=== PATIENT | male | born 1985 | race African-American/Black ===

== ENCOUNTER 2016-05-30 15:54 | Emergency (ER) | payer SELFPAY ==
--- NOTE | 2016-05-30 16:05 | ER Document Report ---
ED Medical Screen (RME) - General Stated Complaint: NAUSEA/VOMITING Time seen by provider: 16:29 Mode of Arrival: Medic Information source: Patient Notes: 31-year-old male presents to ED for Abdominal pain nausea vomiting and diarrhea for 48 hours called EMS today. EMS gave Zofran in the ED template was 97 7 but he is very sweaty for EMS. Generalized abdominal pain for 2 days. It is very diaphoretic crying. I have greeted and performed a rapid initial assessment of this patient. A comprehensive ED assessment and evaluation of the patient, analysis of test results and completion of medical decision making process will be conducted by an additional ED providers. TRAVEL OUTSIDE OF THE [place] IN LAST 30 DAYS: No - Related Data Allergies/Adverse Reactions: latex [Latex] Allergy (Verified 04/27/16 10:12) oxycodone HCl [From Percocet] Allergy (Verified 04/27/16 10:12) Past Medical History - Immunizations Immunizations up to date: Yes Hx Diphtheria, Pertussis, Tetanus Vaccination: Yes Physical Exam - Vital signs Vitals: Temp Pulse Resp BP 97.4 F 79 20 146/94 H 05/30/16 16:28 05/30/16 16:28 05/30/16 16:28 05/30/16 16:28 Course - Vital Signs Vital signs: Temp Pulse Resp BP Pulse Ox 97.4 F 79 20 146/94 H 05/30/16 16:28 05/30/16 16:28 05/30/16 16:28 05/30/16 16:28
[2016-05-30 16:29] VITALS: BP 146/94
[2016-05-30] MEDS ORDERED: HYDROCODONE/ACETAMINOPHEN 5-325 MG TABLET PO ONE (16:32)
[2016-05-30] MEDS ORDERED: ONDANSETRON 4 MG TAB.RAPDIS PO ONE (16:32)
[2016-05-30] MEDS ORDERED: IBUPROFEN 800 MG TABLET PO ONE (16:33)
[2016-05-30 17:20] LABS: ABSOLUTE LYMPHOCYTES (AUTO) 2.2 10^3/uL (0.5-4.7); ABSOLUTE MONOCYTES (AUTO) 1.2 10^3/uL (0.1-1.4); ABSOLUTE NEUT (AUTO) 12.4 10^3/uL (1.7-8.2); BASOPHILS % (AUTO) 0.2 % (0-2); HEMOGLOBIN 13.6 g/dL (13.5-17.0); HGB HCT DIFFERENCE -3.2; LYMPHOCYTES % (AUTO) 13.7 % (13-45); MEAN CORPUSCULAR VOLUME 84 fl (80-97); MONOCYTES % (AUTO) 7.5 % (3-13); RED BLOOD COUNT 5.25 10^6/uL (4.35-5.55); RED CELL DISTRIBUTION WIDTH 14.4 % (11.5-14.0); SEGMENTED NEUTROPHILS % (AUTO) 78.6 % (42-78); WHITE BLOOD COUNT 15.8 10^3/uL (4.0-10.5)
[2016-05-30 17:32] LABS: ALANINE AMINOTRANSFERASE 41 U/L (21-72); ALBUMIN 5.4 g/dL (3.5-5.0); ALKALINE PHOSPHATASE 58 U/L (38-126); ANION GAP 16 (5-19); ASPARTATE AMINO TRANSFERASE 33 U/L (17-59); BILIRUBIN,TOTAL 1.1 mg/dL (0.2-1.3); BLOOD UREA NITROGEN 13 mg/dL (7-20); CALCIUM 11.2 mg/dL (8.4-10.2); CARBON DIOXIDE 24 mmol/L (22-30); CHLORIDE 103 mmol/L (98-107); GLUCOSE 113 mg/dL (75-110); POTASSIUM 3.9 mmol/L (3.6-5.0); SODIUM 143.1 mmol/L (137-145); TOTAL PROTEIN 8.9 g/dL (6.3-8.2)
== END 2016-05-30 20:35 | disposition left against medical advice (07) ==
LOC: ER 15:54
DX: R11.2 Nausea with vomiting, unspecified (principal); R19.7 Diarrhea, unspecified; R10.84 Generalized abdominal pain; Z91.040 Latex allergy status; Z88.6 Allergy status to analgesic agent
CPT/HCPCS: 99281; 36415; 83690; 85025; 80053; S0119

== ENCOUNTER 2016-06-04 10:35 | Emergency (ER) | payer SELFPAY ==
--- NOTE | 2016-06-04 10:47 | ER Document Report ---
ED Medical Screen (RME) - General Stated Complaint: STOMACH PAIN Time seen by provider: 10:44 Mode of Arrival: Ambulatory Information source: Patient Notes: 31-year-old male complaining of intermittent periUmbilical abdominal pain since Monday. He waited in the emergency room after lab was drawn was not seen by provider because the wait was too long. The pain has not moved location. Diarrhea mucus but no blood. No abdominal surgeries. No genitalia pain TRAVEL OUTSIDE OF THE [place] IN LAST 30 DAYS: No - Related Data Allergies/Adverse Reactions: latex [Latex] Allergy (Verified 04/27/16 10:12) oxycodone HCl [From Percocet] Allergy (Verified 04/27/16 10:12) Past Medical History Renal/ Medical History: Denies: Hx Peritoneal Dialysis - Immunizations Immunizations up to date: Yes Hx Diphtheria, Pertussis, Tetanus Vaccination: Yes Physical Exam - Vital signs Vitals: Temp Pulse Resp BP Pulse Ox 98.1 F 74 18 150/85 H 99 06/04/16 10:41 06/04/16 10:41 06/04/16 10:41 06/04/16 10:41 06/04/16 10:41 Course - Vital Signs Vital signs: Temp Pulse Resp BP Pulse Ox 98.1 F 74 18 150/85 H 99 06/04/16 10:41 06/04/16 10:41 06/04/16 10:41 06/04/16 10:41 06/04/16 10:41
[2016-06-04] MEDS ORDERED: ONDANSETRON 4 MG TAB.RAPDIS PO ONE (11:13)
--- NOTE | 2016-06-04 11:13 | ER Document Report ---
ED GI/ - General Chief Complaint: Abdominal Pain Stated Complaint: STOMACH PAIN Mode of Arrival: Ambulatory Information source: Patient Notes: Patient presents complaining of upper abdominal pain off and on over the past 5 days. Patient states he had vomiting 2 days ago but none since then. Patient does report mild nausea. Patient denies any fever or urinary symptoms. Patient states that pain is worse after eating. TRAVEL OUTSIDE OF THE [place] IN LAST 30 DAYS: No - HPI Patient complains to provider of: Abdominal pain Onset: Other - 5 days Timing/Duration: Waxing and waning Quality of pain: Achy Pain Level: 3 Location: Epigastric Sexual history: Active Associated symptoms: Vomiting - 2 days ago, none since. denies: Dysuria, Fever , Nausea, Urinary hesitancy, Urinary frequency, Urinary retention, Urinary urgency Exacerbated by: Food Relieved by: Denies Similar symptoms previously: No Recently seen / treated by doctor: No - Related Data Allergies/Adverse Reactions: latex [Latex] Allergy (Verified 06/04/16 10:46) oxycodone HCl [From Percocet] Allergy (Verified 06/04/16 10:46) Past Medical History - General Information source: Patient - Social History Smoking Status: Current Every Day Smoker Chew tobacco use (# tins/day): No Frequency of alcohol use: Social Drug Abuse: Marijuana Occupation: truck dock material mover Family History: Reviewed & Not Pertinent Patient has suicidal ideation: No Patient has homicidal ideation: No - Medical History Medical History: Negative Renal/ Medical History: Denies: Hx Peritoneal Dialysis Surgical Hx: Negative - Immunizations Immunizations up to date: Yes Hx Diphtheria, Pertussis, Tetanus Vaccination: Yes Review of Systems - Review of Systems Constitutional: No symptoms reported. denies: Fever, Recent illness EENT: No symptoms reported Cardiovascular: No symptoms reported. denies: Chest pain Respiratory: No symptoms reported. denies: Cough, Short of breath Gastrointestinal: Abdominal pain, Diarrhea - Yesterday, none today, Nausea, Vomiting - 2 days ago Genitourinary: No symptoms reported. denies: Dysuria, Flank pain Male Genitourinary: No symptoms reported Musculoskeletal: No symptoms reported. denies: Back pain Skin: No symptoms reported Hematologic/Lymphatic: No symptoms reported Neurological/Psychological: No symptoms reported Physical Exam - Vital signs Vitals: Temp Pulse Resp BP Pulse Ox 98.1 F 74 18 150/85 H 99 06/04/16 10:41 06/04/16 10:41 06/04/16 10:41 06/04/16 10:41 06/04/16 10:41 - General General appearance: Appears well, Alert In distress: None Notes: PHYSICAL EXAMINATION: GENERAL: Well-appearing and in no acute distress. HEAD: Atraumatic, normocephalic. EYES: sclera anicteric, conjunctiva are normal. ENT: nares patent. Moist mucous membranes. NECK: Normal range of motion, supple without lymphadenopathy LUNGS: CTAB and equal. No wheezes rales or rhonchi. HEART: Regular rate and rhythm without murmurs ABDOMEN: Soft, epigastric abdominal tenderness, normal bowel sounds, no guarding. EXTREMITIES: Normal range of motion, no pitting edema. No cyanosis. BACK: No midline tenderness, no step-off or deformity. No CVA tenderness NEUROLOGICAL: Cranial nerves grossly intact. Normal speech. Normal gait. PSYCH: Normal mood, normal affect. SKIN: Warm, Dry, normal turgor, no rashes or lesions noted Course - Re-evaluation Re-evalutation: 06/04/16 13:20 Patient reports that upper abdominal pain has completely resolved after GI cocktail. Abdomen soft, nontender. Consulted with Dr. Janett kemping patient presentation, agrees with plan for discharge. Patient presents with abdominal pain without signs of peritonitis or other life- threatening or serious etiology. Patient appears stable for discharge and has been instructed to return immediately if the symptoms worsen in any way, or in 8 -12 hours if not improved for reevaluation. The patient has been instructed to return if the symptoms worsen or change in any way. - Vital Signs Vital signs: Temp Pulse Resp BP Pulse Ox 97.8 F 74 18 147/98 H 97 06/04/16 13:34 06/04/16 13:34 06/04/16 13:34 06/04/16 13:34 06/04/16 13:34 - Laboratory Result Diagrams: 06/04/16 11:20 06/04/16 11:20 Laboratory results interpreted by me: 06/04/16 06/04/16 06/04/16 11:20 11:20 11:20 Hgb 12.7 L MCH 26.9 L MCHC 31.8 L Glucose 73 L Urine Blood SMALL H Urine Urobilinogen 2.0 H Labs- Entire Visit 06/04/16 06/04/16 06/04/16 11:20 11:20 11:20 WBC 5.8 RBC 4.73 Hgb 12.7 L Hct 40.0 MCV 85 MCH 26.9 L MCHC 31.8 L RDW 13.9 Plt Count 204 Seg Neutrophils % 68.8 Lymphocytes % 22.3 Monocytes % 8.2 Eosinophils % 0.2 Basophils % 0.5 Absolute Neutrophils 4.0 Absolute Lymphocytes 1.3 Absolute Monocytes 0.5 Absolute Eosinophils 0.0 Absolute Basophils 0.0 Sodium 142.3 Potassium 4.3 Chloride 102 Carbon Dioxide 30 Anion Gap 10 BUN 16 Creatinine 1.14 Est GFR ( Amer) > 60 Est GFR (Non-Af Amer) > 60 Glucose 73 L Calcium 9.9 Total Bilirubin 1.0 Direct Bilirubin 0.0 AST 46 ALT 52 Alkaline Phosphatase 39 Total Protein 7.1 Albumin 4.1 Lipase 36.0 Urine Color YELLOW Urine Appearance CLEAR Urine pH 6.0 Ur Specific Agency 1.012 Urine Protein NEGATIVE Urine Glucose (UA) NEGATIVE Urine Ketones NEGATIVE Urine Blood SMALL H Urine Nitrite NEGATIVE Urine Bilirubin NEGATIVE Urine Urobilinogen 2.0 H Ur Leukocyte Esterase NEGATIVE Urine WBC (Auto) 2 Urine RBC (Auto) 1 Urine Ascorbic Acid NEGATIVE Discharge - Discharge Clinical Impression: Epigastric pain, Elevated blood pressure reading Condition: Stable Disposition: HOME, SELF-CARE Instructions: Abdominal Pain ([facility]), High Blood Pressure ([facility]), Reflux Disease ( GERD) ([facility]) Additional Instructions: Return immediately for any new or worsening symptoms Followup with your primary care provider, call tomorrow to make a followup appointment Your blood pressure was elevated today, follow-up with primary doctor in 2 days to have this rechecked Prescriptions: Omeprazole Magnesium [Prilosec Otc] 20 mg PO DAILY #15 tablet. Sucralfate [Carafate 1 gm Tablet] 1 gm PO ACHS #40 tablet Forms: Return to Work Referrals: [facility] [Provider Group] - Follow up as needed [facility] [Provider Group] - Follow up as needed
[2016-06-04 11:41] LABS: ABSOLUTE LYMPHOCYTES (AUTO) 1.3 10^3/uL (0.5-4.7); ABSOLUTE MONOCYTES (AUTO) 0.5 10^3/uL (0.1-1.4); BASOPHILS % (AUTO) 0.5 % (0-2); EOSINOPHILS % (AUTO) 0.2 % (0-6); HEMOGLOBIN 12.7 g/dL (13.5-17.0); HGB HCT DIFFERENCE -1.9; LYMPHOCYTES % (AUTO) 22.3 % (13-45); MEAN CORPUSCULAR HEMOGLOBIN 26.9 pg (27.0-33.4); MEAN CORPUSCULAR HGB CONC 31.8 g/dL (32.0-36.0); MEAN CORPUSCULAR VOLUME 85 fl (80-97); MONOCYTES % (AUTO) 8.2 % (3-13); RED BLOOD COUNT 4.73 10^6/uL (4.35-5.55); RED CELL DISTRIBUTION WIDTH 13.9 % (11.5-14.0); SEGMENTED NEUTROPHILS % (AUTO) 68.8 % (42-78); WHITE BLOOD COUNT 5.8 10^3/uL (4.0-10.5)
[2016-06-04 11:43] LABS: APPEARANCE,URINE CLEAR; BILIRUBIN,URINE NEGATIVE (NEGATIVE); GLUCOSE, URINE NEGATIVE (NEGATIVE); KETONES,URINE NEGATIVE (NEGATIVE); LEUKOCYTE ESTERASE,URINE NEGATIVE (NEGATIVE); NITRITE,URINE NEGATIVE (NEGATIVE); PROTEIN,URINE NEGATIVE (NEGATIVE); URINE SPECIFIC GRAVITY 1.012
[2016-06-04] MEDS ORDERED: LIDOCAINE 2% VISCOUS SOLN 20 ML UDCUP PO ONE (11:57)
[2016-06-04] MEDS ORDERED: MAG HYDROX/AL HYDROX/SIMETH SUSP 30 ML UDCUP PO ONE (11:57)
[2016-06-04 12:00] LABS: ALANINE AMINOTRANSFERASE 52 U/L (21-72); ALBUMIN 4.1 g/dL (3.5-5.0); ALKALINE PHOSPHATASE 39 U/L (38-126); ANION GAP 10 (5-19); ASPARTATE AMINO TRANSFERASE 46 U/L (17-59); BLOOD UREA NITROGEN 16 mg/dL (7-20); CALCIUM 9.9 mg/dL (8.4-10.2); CARBON DIOXIDE 30 mmol/L (22-30); CHLORIDE 102 mmol/L (98-107); CREATININE RESULT 1.14 mg/dL (0.52-1.25); GLUCOSE 73 mg/dL (75-110); POTASSIUM 4.3 mmol/L (3.6-5.0); SODIUM 142.3 mmol/L (137-145); TOTAL PROTEIN 7.1 g/dL (6.3-8.2)
[2016-06-04 13:36] VITALS: BP 147/98
== END 2016-06-04 13:34 | disposition home or self-care (01) ==
LOC: ER 10:35
DX: R10.13 Epigastric pain (principal); R03.0 Elevated blood-pressure reading, without diagnosis of hypertension; R11.2 Nausea with vomiting, unspecified; R19.7 Diarrhea, unspecified; F17.200 Nicotine dependence, unspecified, uncomplicated; Z91.040 Latex allergy status; Z88.6 Allergy status to analgesic agent
CPT/HCPCS: 99284; 36415; 83690; 85025; 80053; 81001; S0119; J3490

== ENCOUNTER 2016-06-13 08:07 | Emergency (ER) | payer SELFPAY ==
[2016-06-13 08:24] VITALS: BP 146/84
== END 2016-06-13 09:10 | disposition left against medical advice (07) ==
LOC: ER 08:07
DX: Z53.9 Procedure and treatment not carried out, unspecified reason (principal); M54.9 Dorsalgia, unspecified

== ENCOUNTER 2016-11-16 08:11 | Emergency (ER) | payer SELFPAY ==
[2016-11-16] MEDS ORDERED: NORMAL SALINE 1000 ML 1,000 ML IV PRN (08:41)
[2016-11-16] MEDS ORDERED: ONDANSETRON HCL INJ/PF 4 MG/2 ML SDV IV ONE (08:42)
[2016-11-16 09:13] LABS: ABSOLUTE LYMPHOCYTES (AUTO) 1.5 10^3/uL (0.5-4.7); ABSOLUTE MONOCYTES (AUTO) 0.7 10^3/uL (0.1-1.4); BASOPHILS % (AUTO) 0.3 % (0-2); EOSINOPHILS % (AUTO) 0.4 % (0-6); HEMATOCRIT 43.1 % (37.9-51.0); HEMOGLOBIN 13.5 g/dL (13.5-17.0); HGB HCT DIFFERENCE -2.6; LYMPHOCYTES % (AUTO) 18.2 % (13-45); MEAN CORPUSCULAR HEMOGLOBIN 26.4 pg (27.0-33.4); MEAN CORPUSCULAR HGB CONC 31.4 g/dL (32.0-36.0); MEAN CORPUSCULAR VOLUME 84 fl (80-97); MONOCYTES % (AUTO) 8.4 % (3-13); RED BLOOD COUNT 5.14 10^6/uL (4.35-5.55); RED CELL DISTRIBUTION WIDTH 14.4 % (11.5-14.0); SEGMENTED NEUTROPHILS % (AUTO) 72.7 % (42-78); WHITE BLOOD COUNT 8.2 10^3/uL (4.0-10.5)
[2016-11-16 09:24] LABS: ALANINE AMINOTRANSFERASE 44 U/L (21-72); ALBUMIN 4.5 g/dL (3.5-5.0); ALKALINE PHOSPHATASE 48 U/L (38-126); ANION GAP 11 (5-19); ASPARTATE AMINO TRANSFERASE 43 U/L (17-59); BILIRUBIN,DIRECT 0.2 mg/dL (0.0-0.4); BILIRUBIN,TOTAL 1.1 mg/dL (0.2-1.3); BLOOD UREA NITROGEN 19 mg/dL (7-20); CALCIUM 9.6 mg/dL (8.4-10.2); CARBON DIOXIDE 27 mmol/L (22-30); CHLORIDE 100 mmol/L (98-107); CREATININE RESULT 0.95 mg/dL (0.52-1.25); GLUCOSE 91 mg/dL (75-110); LIPASE 41.7 U/L (23-300); POTASSIUM 4.6 mmol/L (3.6-5.0); SODIUM 137.8 mmol/L (137-145); TOTAL PROTEIN 7.9 g/dL (6.3-8.2)
--- NOTE | 2016-11-16 10:40 | ER Document Report ---
ED General - General Chief Complaint: Abdominal Pain Stated Complaint: VOMITING Time Seen by Provider: 11/16/16 08:32 TRAVEL OUTSIDE OF THE [place] IN LAST 30 DAYS: No - HPI Patient complains to provider of: Nausea vomiting diarrhea Notes: Patient coming in for nausea vomiting diarrhea after eating uncooked pork ribs 2 days prior to arrival states no more diarrhea still having nausea vomiting abdominal cramping. Patient denies any recent travel denies any other sick contacts denies anybody else getting sick from the needle. Denies any past medical history denies fevers chills patient is resting comfortably upon my evaluation - Related Data Allergies/Adverse Reactions: latex [Latex] Allergy (Verified 11/16/16 08:18) oxycodone HCl [From Percocet] Allergy (Verified 11/16/16 08:18) Past Medical History - Social History Smoking Status: Never Smoker Chew tobacco use (# tins/day): No Frequency of alcohol use: None Drug Abuse: Marijuana Family History: Reviewed & Not Pertinent Patient has suicidal ideation: No Patient has homicidal ideation: No Renal/ Medical History: Denies: Hx Peritoneal Dialysis Surgical Hx: Negative - Immunizations Immunizations up to date: Yes Hx Diphtheria, Pertussis, Tetanus Vaccination: Yes - 2014 Review of Systems - Review of Systems Constitutional: No symptoms reported EENT: No symptoms reported Cardiovascular: No symptoms reported Respiratory: No symptoms reported Gastrointestinal: Abdominal pain, Nausea, Vomiting Genitourinary: No symptoms reported Male Genitourinary: No symptoms reported Musculoskeletal: No symptoms reported Skin: No symptoms reported Hematologic/Lymphatic: No symptoms reported Neurological/Psychological: No symptoms reported -: Yes All other systems reviewed and negative Physical Exam - Vital signs Vitals: Temp Pulse Resp BP Pulse Ox 98.2 F 70 16 120/76 99 11/16/16 08:19 11/16/16 08:19 11/16/16 08:19 11/16/16 08:19 11/16/16 08:19 Interpretation: Normal - General General appearance: Appears well, Alert - HEENT Head: Normocephalic, Atraumatic Eyes: Normal Pupils: PERRL - Respiratory Respiratory status: No respiratory distress Chest status: Nontender Breath sounds: Normal Chest palpation: Normal - Cardiovascular Rhythm: Regular Heart sounds: Normal auscultation Murmur: No - Abdominal Inspection: Normal Distension: No distension Bowel sounds: Normal Tenderness: Nontender Organomegaly: No organomegaly - Back Back: Normal, Nontender - Extremities General upper extremity: Normal inspection, Nontender, Normal color, Normal ROM , Normal temperature General lower extremity: Normal inspection, Nontender, Normal color, Normal ROM , Normal temperature, Normal weight bearing. No: Ned's sign - Neurological Neuro grossly intact: Yes Cognition: Normal Orientation: AAOx4 Superior Coma Scale Eye Opening: Spontaneous [place] Coma Scale Verbal: Oriented [place] Coma Scale Motor: Obeys Commands [place] Coma Scale Total: 15 Speech: Normal Motor strength normal: LUE, RUE, LLE, RLE Sensory: Normal - Psychological Associated symptoms: Normal affect, Normal mood - Skin Skin Temperature: Warm Skin Moisture: Dry Skin Color: Normal Course - Vital Signs Vital signs: Temp Pulse Resp BP Pulse Ox 97.9 F 68 17 131/76 H 100 11/16/16 10:46 11/16/16 10:46 11/16/16 10:46 11/16/16 10:46 11/16/16 10:46 - Laboratory Result Diagrams: 11/16/16 09:02 11/16/16 09:02 Laboratory results interpreted by me: 11/16/16 09:02 MCH 26.4 L MCHC 31.4 L RDW 14.4 H Discharge - Discharge Clinical Impression: Nausea vomiting and diarrhea Condition: Good Disposition: HOME, SELF-CARE Instructions: Abdominal Pain ([facility]), Gastroenteritis (adult) ([facility]) Additional Instructions: Take medication as prescribed. Return to the ER symptoms worsen. Follow-up with your primary care physician. Stick to a clear liquid diet for the next 12- 24 hrs. Prescriptions: Ondansetron [Zofran Odt 4 mg Tablet] 1 - 2 tab PO Q4H PRN #15 tab.rapdis PRN Reason: For Nausea/Vomiting Forms: Return to Work
[2016-11-16 10:51] VITALS: BP 131/76
== END 2016-11-16 10:51 | disposition home or self-care (01) ==
LOC: ER 08:11
DX: R11.2 Nausea with vomiting, unspecified (principal); R19.7 Diarrhea, unspecified; R10.9 Unspecified abdominal pain; Z88.5 Allergy status to narcotic agent; Z91.040 Latex allergy status
CPT/HCPCS: 99284; 96374; 36415; 83690; 85025; 80053; J2405; J7030

== ENCOUNTER 2017-01-16 10:47 | Emergency (ER) | payer SELFPAY ==
[2017-01-16] MEDS ORDERED: NORMAL SALINE 1000 ML 1,000 ML IV PRN (10:58)
[2017-01-16] MEDS ORDERED: ONDANSETRON HCL INJ/PF 4 MG/2 ML SDV IV ONE (10:58)
[2017-01-16] MEDS ORDERED: KETOROLAC TROMETHAMINE INJ/PF 30 MG/1 ML SDV IV ONE (10:58)
--- NOTE | 2017-01-16 11:00 | ER Document Report ---
ED Medical Screen (RME) - General Chief Complaint: Abdominal Pain Stated Complaint: ABDOMINAL PAIN Time Seen by Provider: 01/16/17 10:54 Mode of Arrival: Wheelchair Information source: Patient, Relative TRAVEL OUTSIDE OF THE [place] IN LAST 30 DAYS: No - HPI Patient complains to provider of: Abdominal pain Onset: This morning Notes: 01/16/17 10:58 Patient is a 31-year-old male presenting to the emergency room this morning complaining of abdominal pain with nausea and vomiting that started this morning , he reports a history of similar symptoms previously, denies any diarrhea, no fevers, no urinary symptoms, he is bent over in the wheelchair with a towel around his head and an empty emesis bag, moaning and crying and holding his stomach in the epigastric region - Related Data Allergies/Adverse Reactions: latex [Latex] Allergy (Verified 01/16/17 10:51) oxycodone HCl [From Percocet] Allergy (Verified 01/16/17 10:51) Past Medical History Renal/ Medical History: Denies: Hx Peritoneal Dialysis - Immunizations Immunizations up to date: Yes Hx Diphtheria, Pertussis, Tetanus Vaccination: Yes - 2014 Physical Exam - Vital signs Vitals: Temp Pulse Resp BP Pulse Ox 97.5 F 89 24 H 177/90 H 100 01/16/17 10:48 01/16/17 10:48 01/16/17 10:48 01/16/17 10:48 01/16/17 10:48 Course - Vital Signs Vital signs: Temp Pulse Resp BP Pulse Ox 97.5 F 89 24 H 177/90 H 100 01/16/17 10:48 01/16/17 10:48 01/16/17 10:48 01/16/17 10:48 01/16/17 10:48
[2017-01-16] MEDS ORDERED: NORMAL SALINE 1000 ML 1,000 ML IV ONE (11:19)
[2017-01-16] MEDS ORDERED: MORPHINE SULFATE 10 MG/ML INJ ONE (11:22)
[2017-01-16] MEDS ORDERED: MORPHINE SULFATE 10 MG/ML INJ IV ONE (11:30)
[2017-01-16 11:40] LABS: ABSOLUTE LYMPHOCYTES (AUTO) 1.8 10^3/uL (0.5-4.7); ABSOLUTE MONOCYTES (AUTO) 0.8 10^3/uL (0.1-1.4); ABSOLUTE NEUT (AUTO) 9.8 10^3/uL (1.7-8.2); BASOPHILS % (AUTO) 0.3 % (0-2); EOSINOPHILS % (AUTO) 0.1 % (0-6); HEMATOCRIT 45.4 % (37.9-51.0); HEMOGLOBIN 14.2 g/dL (13.5-17.0); HGB HCT DIFFERENCE -2.8; LYMPHOCYTES % (AUTO) 14.6 % (13-45); MEAN CORPUSCULAR HEMOGLOBIN 26.5 pg (27.0-33.4); MEAN CORPUSCULAR HGB CONC 31.3 g/dL (32.0-36.0); MEAN CORPUSCULAR VOLUME 85 fl (80-97); MONOCYTES % (AUTO) 6.7 % (3-13); RED BLOOD COUNT 5.36 10^6/uL (4.35-5.55); RED CELL DISTRIBUTION WIDTH 14.8 % (11.5-14.0); SEGMENTED NEUTROPHILS % (AUTO) 78.3 % (42-78); WHITE BLOOD COUNT 12.6 10^3/uL (4.0-10.5)
[2017-01-16 12:00] LABS: ALANINE AMINOTRANSFERASE 55 U/L (21-72); ALBUMIN 5.6 g/dL (3.5-5.0); ALKALINE PHOSPHATASE 57 U/L (38-126); ANION GAP 18 (5-19); ASPARTATE AMINO TRANSFERASE 42 U/L (17-59); BILIRUBIN,DIRECT 0.3 mg/dL (0.0-0.4); BILIRUBIN,TOTAL 0.8 mg/dL (0.2-1.3); BLOOD UREA NITROGEN 13 mg/dL (7-20); CALCIUM 11.5 mg/dL (8.4-10.2); CARBON DIOXIDE 22 mmol/L (22-30); CHLORIDE 103 mmol/L (98-107); CREATININE RESULT 1.05 mg/dL (0.52-1.25); GLUCOSE 116 mg/dL (75-110); LIPASE 64.3 U/L (23-300); POTASSIUM 4.1 mmol/L (3.6-5.0); SODIUM 142.8 mmol/L (137-145); TOTAL PROTEIN 9.2 g/dL (6.3-8.2)
--- NOTE | 2017-01-16 12:31 | RADIOLOGY REPORT (SQ) ---
EXAM DESCRIPTION: CT LTD RENAL STONE PROTOCOL ON COMPLETED DATE/TIME: 01/16/2017 11:47 am REASON FOR STUDY: left flank COMPARISON: Abdomen CT 12/31/2015 TECHNIQUE: CT scan of the abdomen and pelvis performed without intravenous or oral contrast. Images reviewed with lung, soft tissue, and bone windows. Reconstructed coronal and sagittal MPR images revi ewed. All images stored on PACS. All CT scanners at this facility use dose modulation, iterative reconstruction, and/or weight based d osing when appropriate to reduce radiation dose to as low as reasonably achievable (ALARA). [facility]: Dose Right [facility]: CareDose [facility]: Dose Right [facility]: Teradose 4D [facility]: Crowd Sense RADIATION DOSE: Up-to-date CT equipment and radiation dose reduction techniques were employed. CTDIv ol: 9.9 mGy. DLP: 569 mGy-cm.mGy. LIMITATIONS: Lack of oral or intravenous contrast ; paucity of intra-abdominal fat ; artifact from t he patient's arms. FINDINGS: LOWER CHEST: No significant findings. No nodules or infiltrates. NON-CONTRASTED LIVER, SPLEEN, ADRENALS: Limited by lack of contrast and by artifact from the presence of the patient's arms. No masses. PANCREAS: No masses. No peripancreatic inflammatory changes. GALLBLADDER: No identified stones by CT criteria. No inflammatory changes to suggest cholecystitis. RIGHT KIDNEY AND URETER: No suspicious masses. Assessment limited by lack of IV contrast. No signif icant calcifications. No hydronephrosis or hydroureter. LEFT KIDNEY AND URETER: No suspicious masses. Assessment limited by lack of IV contrast. No signifi cant calcifications. No hydronephrosis or hydroureter. AORTA AND RETROPERITONEUM: No aneurysm. No retroperitoneal masses or adenopathy. BOWEL AND PERITONEAL CAVITY: No obvious masses or inflammatory changes. No free fluid. APPENDIX: Not identified. PELVIS, BLADDER, AND ABDOMINAL WALL:No abnormal masses. No free fluid. Bladder normal. BONES: No significant findings. OTHER: No other significant finding. IMPRESSION: LIMITED STUDY. NO ACUTE ABNORMALITY IS SEEN IN THE ABDOMEN OR PELVIS. COMMENT: Quality ID # [id number]: Final reports with documentation of one or more dose reduction techniques (e.g., Automated exposure control, adjustment of the mA and/or kV according to patient size, use of iterative reconstruction technique) TECHNICAL DOCUMENTATION: JOB ID: [id number]- All Rights Reserved
[2017-01-16 13:35] LABS: APPEARANCE,URINE CLEAR; BILIRUBIN,URINE NEGATIVE (NEGATIVE); GLUCOSE, URINE NEGATIVE (NEGATIVE); KETONES,URINE NEGATIVE (NEGATIVE); LEUKOCYTE ESTERASE,URINE NEGATIVE (NEGATIVE); NITRITE,URINE NEGATIVE (NEGATIVE); PROTEIN,URINE NEGATIVE (NEGATIVE); URINE SPECIFIC GRAVITY 1.024; UROBILINOGEN,URINE NEGATIVE mg/dL (<2.0)
[2017-01-16 13:52] LABS: URINE BARBITURATES SCREEN NEGATIVE; URINE METHADONE SCREEN NEGATIVE; URINE OPIATES LOW UNCONFIRMED POSITIVE; URINE PHENCYCLIDINE SCREEN NEGATIVE
--- NOTE | 2017-01-16 13:55 | ER Document Report ---
ED General - General Chief Complaint: Abdominal Pain Stated Complaint: ABDOMINAL PAIN Time Seen by Provider: 01/16/17 10:54 Mode of Arrival: Wheelchair TRAVEL OUTSIDE OF THE [place] IN LAST 30 DAYS: No - HPI Patient complains to provider of: Abdominal pain Notes: Patient coming in for evaluation of abdominal pain. Patient is very uncooperative on initial examination rolling around the bed patient mostly points to the left flank region where his pain is at. Patient is diaphoretic upon evaluation. States nausea vomiting. No trauma states patient states the pain started acutely. Patient does admit to smoking marijuana night prior to arrival. Otherwise denies any other illnesses denies fevers chills. - Related Data Allergies/Adverse Reactions: latex [Latex] Allergy (Verified 01/16/17 10:51) oxycodone HCl [From Percocet] Allergy (Verified 01/16/17 10:51) Past Medical History - General Information source: Patient, Relative - Social History Smoking Status: Unknown if Ever Smoked Chew tobacco use (# tins/day): No Frequency of alcohol use: None Drug Abuse: None Family History: Reviewed & Not Pertinent Renal/ Medical History: Denies: Hx Peritoneal Dialysis - Immunizations Immunizations up to date: Yes Hx Diphtheria, Pertussis, Tetanus Vaccination: Yes - 2014 Review of Systems - Review of Systems Constitutional: No symptoms reported EENT: No symptoms reported Cardiovascular: No symptoms reported Respiratory: No symptoms reported Gastrointestinal: Abdominal pain Genitourinary: No symptoms reported Male Genitourinary: No symptoms reported Musculoskeletal: No symptoms reported Skin: No symptoms reported Hematologic/Lymphatic: No symptoms reported Neurological/Psychological: No symptoms reported Physical Exam - Vital signs Vitals: Temp Pulse Resp BP Pulse Ox 97.5 F 89 24 H 177/90 H 100 01/16/17 10:48 01/16/17 10:48 01/16/17 10:48 01/16/17 10:48 01/16/17 10:48 Interpretation: Normal - General General appearance: Appears well, Alert - HEENT Head: Normocephalic, Atraumatic Eyes: Normal Pupils: PERRL - Respiratory Respiratory status: No respiratory distress Chest status: Nontender Breath sounds: Normal Chest palpation: Normal - Cardiovascular Rhythm: Regular Heart sounds: Normal auscultation Murmur: No - Abdominal Inspection: Normal Distension: No distension Bowel sounds: Normal Tenderness: Other - Patient coming in for abdominal pain initial examination patient writhing around rolling around in bed. Sitting left flank pain. Patient was given ketorolac and morphine soon as he was given this medication patient come down reexamined the patient abdomen soft nontender no rebound or guarding. Organomegaly: No organomegaly - Back Back: Normal, Nontender - Extremities General upper extremity: Normal inspection, Nontender, Normal color, Normal ROM , Normal temperature General lower extremity: Normal inspection, Nontender, Normal color, Normal ROM , Normal temperature, Normal weight bearing. No: Ned's sign - Neurological Neuro grossly intact: Yes Cognition: Normal Orientation: AAOx4 [place] Coma Scale Eye Opening: Spontaneous [place] Coma Scale Verbal: Oriented [place] Coma Scale Motor: Obeys Commands [place] Coma Scale Total: 15 Speech: Normal Motor strength normal: LUE, RUE, LLE, RLE Sensory: Normal - Psychological Associated symptoms: Normal affect, Normal mood - Skin Skin Temperature: Warm Skin Moisture: Dry Skin Color: Normal Course - Re-evaluation Re-evalutation: 01/16/17 18:33 Patient's laboratory studies and CT scan to evaluate the patient's abdominal pain is negative for any acute process. The patient presents with abdominal pain without signs of peritonitis or other life-threatening or serious etiology. The patient appears stable for discharge and has been instructed to return immediately if the symptoms worsen in any way, or in 8-12hr if not improved for re-evaluation. The patient has been instructed to return if the symptoms worsen or change in any way. - Vital Signs Vital signs: Temp Pulse Resp BP Pulse Ox 97.5 F 89 0 L 101/89 H 100 01/16/17 10:48 01/16/17 10:48 01/16/17 13:02 01/16/17 14:02 01/16/17 14:02 - Laboratory Result Diagrams: 01/16/17 11:13 01/16/17 11:13 Laboratory results interpreted by me: 01/16/17 01/16/17 01/16/17 11:13 11:13 13:15 WBC 12.6 H MCH 26.5 L MCHC 31.3 L RDW 14.8 H Seg Neutrophils % 78.3 H Absolute Neutrophils 9.8 H Glucose 116 H Calcium 11.5 H Total Protein 9.2 H Albumin 5.6 H Urine Blood SMALL H Discharge - Discharge Clinical Impression: Abdominal pain Qualifiers: Abdominal location: unspecified location Qualified Code(s): R10.9 - Unspecified abdominal pain Condition: Good Disposition: HOME, SELF-CARE Instructions: Abdominal Pain ([facility]), Antispasmodics ([facility]) Additional Instructions: No clear signs for etiology of your abdominal pain. However recommend to stop smoking marijuana. Return to the ER if symptoms worsen. Follow-up with your primary care physician. Prescriptions: Dicyclomine HCl [Bentyl 20 mg Tablet] 20 mg PO QID #20 tablet Forms: Return to Work
[2017-01-16 14:21] VITALS: BP 101/89
--- NOTE | 2017-01-17 20:05 | EKG REPORT ---
SEVERITY:- ABNORMAL ECG - SINUS RHYTHM PROBABLE LEFT VENTRICULAR HYPERTROPHY ST ELEV, PROBABLE NORMAL EARLY REPOL PATTERN : Confirmed by: Kassandra Rosales 17-Jan-2017 20:05:23
== END 2017-01-16 14:20 | disposition home or self-care (01) ==
LOC: ER 10:47
DX: R10.9 Unspecified abdominal pain (principal)
CPT/HCPCS: 93005; 99284; 96361; 96374; 96375; 36415; 82962; 83690; 85025; 80053; 81001; 80307; 76380; 93010; J1885; J2405; J7030

== ENCOUNTER 2017-04-08 22:04 | Emergency (ER) | payer SELFPAY ==
[2017-04-08 22:35] VITALS: BP 148/97
--- NOTE | 2017-04-08 22:48 | ER Document Report ---
HPI - HPI Pain Level: 5 Notes: Pivot note performed on wrong patient Patient is a 32-year-old male no significant past medical history presents ED complaining of left thumb pain status post slamming a car door on his thumb 2-3 hours ago. Patient states that the pain is localized to the thumb and does not radiate. Patient states that he is still able to move his thumb through range of motion. Patient has not noticed any laceration or bleeding. No other concerns or complaints. Denies any headache, fever, head injury, neck pain, chest pain, palpitations, syncope, cough, shortness of breath, wheeze, dyspnea, abdominal pain, nausea/vomiting/diarrhea, urinary retention, dysuria, hematuria , numbness/tingling, muscle paralysis/weakness, or rash. - ROS Notes: REVIEW OF SYSTEMS: CONSTITUTIONAL : Denies fever, chills, or sweats. Denies recent illness. EENT: Denies eye, ear, throat, or mouth pain or symptoms. Denies nasal or sinus congestion or discharge. Denies throat, tongue, or mouth swelling or difficulty swallowing. CARDIOVASCULAR: Denies chest pain. Denies palpitations or racing or irregular heart beat. RESPIRATORY: Denies cough, cold, or chest congestion. Denies shortness of breath, difficulty breathing, or wheezing. GASTROINTESTINAL: Denies abdominal pain or distention. Denies nausea, vomiting , or diarrhea. GENITOURINARY: Denies difficulty urinating, painful urination, burning, frequency, blood in urine, or discharge. MUSCULOSKELETAL: see hpi SKIN: Denies rash, lesions or sores. NEUROLOGICAL: Denies confusion or altered mental status. Denies passing out or loss of consciousness. Denies dizziness or lightheadedness. Denies headache. Denies weakness or paralysis or loss of use of either side. Denies problems with gait or speech. Denies sensory loss, numbness, or tingling. ALL OTHER SYSTEMS REVIEWED AND NEGATIVE. Dictation was performed using [employer] voice recognition software - REPRODUCTIVE Reproductive: DENIES: : Past Medical History - Social History Smoking Status: Never Smoker Family History: Reviewed & Not Pertinent Patient has suicidal ideation: No Patient has homicidal ideation: No Renal/ Medical History: Denies: Hx Peritoneal Dialysis - Immunizations Immunizations up to date: Yes Hx Diphtheria, Pertussis, Tetanus Vaccination: Yes - 2015 Vertical Provider Document - CONSTITUTIONAL Agree With Documented VS: Yes Notes: PHYSICAL EXAMINATION: GENERAL: Well-appearing, well-nourished and in no acute distress. LUNGS: Breath sounds clear to auscultation bilaterally and equal. No wheezes rales or rhonchi. HEART: Regular rate and rhythm without murmurs, rubs, gallops. Musculoskeletal: Left thumb: FROM to passive/active. + mild swelling noted to the distal digit with scant amount of blood underneath his nail. The nail is not being lifted off of the base and is not enough to warrant cauterization to the nail for relief. N/V intact distal. + tenderness to the distal 1st digit. Left hand: FROM to passive/active. Strength 5+/5. No bony tenderness other than the 1st digit. No scaphoid tenderness. Extremities: No cyanosis, clubbing, or edema b/l. Peripheral pulses 2+. Capillary refill less than 3 seconds. NEUROLOGICAL: Normal speech, normal gait. Normal sensory, motor exams PSYCH: Normal mood, normal affect. SKIN: Warm, Dry, normal turgor, no rashes or lesions noted. - INFECTION CONTROL TRAVEL OUTSIDE OF THE [place] IN LAST 30 DAYS: No - RESPIRATORY O2 Sat by Pulse Oximetry: 96 Course - Re-evaluation Re-evalutation: 04/08/17 22:52 Patient is an afebrile, well-hydrated, 32-year-old male who presents the ED with a left thumb contusion. Vitals are stable. PE is otherwise unremarkable for any neurovascular compromise, obvious tendon/ligament rupture, obvious fracture or dislocation. X-ray was unremarkable for any acute pathology. Tylenol given p.o. today. Recommend conservative measures for symptoms. Recheck with your PCM in 3-5 days. Consider consult orthopedics/physical therapy if needed. Return to the ED with any worsening/concerning symptoms otherwise as reviewed in discharge. Patient is in agreement. - Vital Signs Vital signs: Temp Pulse Resp BP Pulse Ox 98.4 F 55 L 18 148/97 H 96 04/08/17 22:32 12 22:32 12 22:32 04/08/17 22:32 04/08/17 22:32 Discharge - Discharge Clinical Impression: Contusion of left thumb Qualifiers: Encounter type: initial encounter Damage to nail status: without damage Qualified Code(s): S60.012A - Contusion of left thumb without damage to nail, initial encounter Condition: Stable Disposition: HOME, SELF-CARE Instructions: Contusion ([facility]), Ice & Elevation ([facility]) Additional Instructions: Rest, Ice, Compression, Elevation Tylenol/ibuprofen as needed Light stretches daily Strength exercises as able Moist heat and massage may help F/u with your PCP in 3-5 days for a recheck Consider consult(s) with Orthopedics/physical therapy for ongoing/worsening symptoms Return to the ED with any worsening symptoms and/or development of fever, headache, chest pain, palpitations, syncope, shortness of breath, trouble breathing, abdominal pain, n/v/d, muscle weakness/paralysis, numbness/tingling, swelling, redness, or other worsening symptoms that are concerning to you. Forms: Elevated Blood Pressure Referrals: [facility] [Provider Group] - Follow up as needed
--- NOTE | 2017-04-08 22:51 | RADIOLOGY REPORT (SQ) ---
EXAM DESCRIPTION: HAND LEFT 3 VIEWS COMPLETED DATE/TIME: 04/08/2017 10:42 pm REASON FOR STUDY: slammed in car door COMPARISON: None. EXAM PARAMETERS: NUMBER OF VIEWS: Three views. TECHNIQUE: AP, lateral and oblique radiographic images acquired of the left hand. LIMITATIONS: None. FINDINGS: MINERALIZATION: Normal. BONES: No acute fracture or dislocation. No worrisome bone lesions. JOINTS: No effusions. SOFT TISSUES: No soft tissue swelling. No foreign body. OTHER: No other significant finding. IMPRESSION: NEGATIVE STUDY OF THE LEFT HAND. NO RADIOGRAPHIC EVIDENCE OF ACUTE INJURY. TECHNICAL DOCUMENTATION: JOB ID: [id number] [employer]- All Rights Reserved
[2017-04-08] MEDS ORDERED: ACETAMINOPHEN 325 MG TABLET PO ONE (22:53)
== END 2017-04-08 23:20 | disposition home or self-care (01) ==
LOC: ER 22:04
DX: S60.112A Contusion of left thumb with damage to nail, initial encounter (principal); M79.645 Pain in left finger(s); W23.0XXA Caught, crushed, jammed, or pinched between moving objects, initial encounter
CPT/HCPCS: 99283

== ENCOUNTER 2017-06-15 11:44 | Emergency (ER) | payer SELFPAY ==
[2017-06-15 12:01] VITALS: BP 141/93
[2017-06-15] MEDS ORDERED: HALOPERIDOL LACTATE INJ 5 MG/1 ML VIAL IV ONE (12:15)
[2017-06-15] MEDS ORDERED: NORMAL SALINE 1000 ML 1,000 ML IV ONE (12:15)
[2017-06-15] MEDS ORDERED: DIPHENHYDRAMINE HCL 50 MG/ML VIAL IV ONE (12:15)
--- NOTE | 2017-06-15 12:18 | ER Document Report ---
ED Medical Screen (RME) - General Chief Complaint: Abdominal Pain Stated Complaint: ABDOMINAL PAIN Time Seen by Provider: 06/15/17 12:07 Mode of Arrival: Ambulatory Information source: Patient Notes: 32-year-old male who gets food poisoning 4 times a year presenting with diaphoresis and abdominal pain on previous visits presents with similar complaints of generalized abdominal pain. Patient crying the ED I have greeted and performed a rapid initial assessment of this patient. A comprehensive ED assessment and evaluation of the patient, analysis of test results and completion of the medical decision making process will be conducted by additional ED providers. PHYSICAL EXAMINATION: GENERAL: Patient is diaphoretic crying HEAD: Atraumatic, normocephalic. EYES: Pupils equal round extraocular movements intact, conjunctiva are normal. ENT: Nares patent NECK: Normal range of motion LUNGS: No respiratory distress Musculoskeletal: Normal range of motion NEUROLOGICAL: Normal speech, normal gait. PSYCH: Normal mood, normal affect. SKIN: Diaphoretic TRAVEL OUTSIDE OF THE [place] IN LAST 30 DAYS: No - Related Data Allergies/Adverse Reactions: latex [Latex] Allergy (Verified 06/15/17 11:46) oxycodone HCl [From Percocet] Allergy (Verified 06/15/17 11:46) Past Medical History - Social History Chew tobacco use (# tins/day): No Frequency of alcohol use: None Drug Abuse: Marijuana Renal/ Medical History: Denies: Hx Peritoneal Dialysis - Immunizations Immunizations up to date: Yes Hx Diphtheria, Pertussis, Tetanus Vaccination: Yes - 2014 Physical Exam - Vital signs Vitals: Pulse Resp BP Pulse Ox 70 22 H 141/93 H 100 06/15/17 12:00 06/15/17 12:00 06/15/17 12:00 06/15/17 12:00 Course - Vital Signs Vital signs: Temp Pulse Resp BP Pulse Ox 70 22 H 141/93 H 100 06/15/17 12:00 06/15/17 12:00 06/15/17 12:00 06/15/17 12:00
[2017-06-15 12:50] LABS: ABSOLUTE BASOPHILS # (AUTO) 0.1 10^3/uL (0.0-0.2); ABSOLUTE LYMPHOCYTES (AUTO) 1.8 10^3/uL (0.5-4.7); ABSOLUTE MONOCYTES (AUTO) 0.8 10^3/uL (0.1-1.4); ABSOLUTE NEUT (AUTO) 11.3 10^3/uL (1.7-8.2); BASOPHILS % (AUTO) 0.4 % (0-2); EOSINOPHILS % (AUTO) 0.1 % (0-6); HEMATOCRIT 45.8 % (37.9-51.0); HEMOGLOBIN 14.7 g/dL (13.5-17.0); MEAN CORPUSCULAR HEMOGLOBIN 26.6 pg (27.0-33.4); MEAN CORPUSCULAR HGB CONC 32.1 g/dL (32.0-36.0); MEAN CORPUSCULAR VOLUME 83 fl (80-97); MONOCYTES % (AUTO) 5.8 % (3-13); PLATELET COUNT 290 10^3/uL (150-450); RED BLOOD COUNT 5.52 10^6/uL (4.35-5.55); RED CELL DISTRIBUTION WIDTH 15.5 % (11.5-14.0); SEGMENTED NEUTROPHILS % (AUTO) 80.7 % (42-78); TOTAL CELLS COUNTED % (AUTO) 100 %; WHITE BLOOD COUNT 14.1 10^3/uL (4.0-10.5)
[2017-06-15 13:09] LABS: ALANINE AMINOTRANSFERASE 92 U/L (21-72); ALBUMIN 5.7 g/dL (3.5-5.0); ALKALINE PHOSPHATASE 52 U/L (38-126); ANION GAP 15 (5-19); ASPARTATE AMINO TRANSFERASE 70 U/L (17-59); BILIRUBIN,DIRECT 0.2 mg/dL (0.0-0.4); BILIRUBIN,TOTAL 0.5 mg/dL (0.2-1.3); BLOOD UREA NITROGEN 13 mg/dL (7-20); CALCIUM 11.4 mg/dL (8.4-10.2); CARBON DIOXIDE 26 mmol/L (22-30); CHLORIDE 104 mmol/L (98-107); GLUCOSE 109 mg/dL (75-110); LIPASE 43.4 U/L (23-300); POTASSIUM 4.5 mmol/L (3.6-5.0); SODIUM 144.9 mmol/L (137-145); TOTAL PROTEIN 9.5 g/dL (6.3-8.2)
--- NOTE | 2017-06-15 13:57 | ER Document Report ---
ED General - General Chief Complaint: Abdominal Pain Stated Complaint: ABDOMINAL PAIN Time Seen by Provider: 06/15/17 12:07 Mode of Arrival: Medic Information source: Patient, Relative Notes: 32-year-old male presents with complaints of abdominal pain cramping to have similar episodes 4 times a year where he comes in crying diaphoretic with abdominal pain. Patient notes symptoms started this morning. Denies any fevers or chills denies any current episodes of vomiting admits to nausea Patient family member believe he had food poisoning TRAVEL OUTSIDE OF THE [place] IN LAST 30 DAYS: No - HPI Onset: Just prior to arrival Onset/Duration: Sudden Quality of pain: Cramping Severity: Mild Pain Level: 3 Associated symptoms: Nausea, Vomiting Exacerbated by: Food Relieved by: Denies Similar symptoms previously: Yes Recently seen / treated by doctor: Yes - Related Data Allergies/Adverse Reactions: latex [Latex] Allergy (Verified 06/15/17 11:46) oxycodone HCl [From Percocet] Allergy (Verified 06/15/17 11:46) Past Medical History - General Information source: Patient - Social History Smoking Status: Current Some Day Smoker Cigarette use (# per day): Yes Chew tobacco use (# tins/day): No Smoking Education Provided: No Frequency of alcohol use: None Drug Abuse: Marijuana Family History: Reviewed & Not Pertinent Patient has suicidal ideation: No Patient has homicidal ideation: No Renal/ Medical History: Denies: Hx Peritoneal Dialysis - Immunizations Immunizations up to date: Yes Hx Diphtheria, Pertussis, Tetanus Vaccination: Yes - 2014 Review of Systems - Review of Systems Notes: REVIEW OF SYSTEMS: CONSTITUTIONAL : Denies fever, chills, or sweats. Denies recent illness. EENT: Denies eye, ear, throat, or mouth pain or symptoms. Denies nasal or sinus congestion or discharge. Denies throat, tongue, or mouth swelling or difficulty swallowing. CARDIOVASCULAR: Denies chest pain. Denies palpitations or racing or irregular heart beat. Denies ankle edema. RESPIRATORY: Denies cough, cold, or chest congestion. Denies shortness of breath, difficulty breathing, or wheezing. GASTROINTESTINAL: Admits to abdominal pain nausea vomiting GENITOURINARY: Denies difficulty urinating, painful urination, burning, frequency, blood in urine, or discharge. MUSCULOSKELETAL: Denies back or neck pain or stiffness. Denies joint pain or swelling. SKIN: Denies rash, lesions or sores. HEMATOLOGIC : Denies easy bruising or bleeding. LYMPHATIC: Denies swollen, enlarged glands. NEUROLOGICAL: Denies confusion or altered mental status. Denies passing out or loss of consciousness. Denies dizziness or lightheadedness. Denies headache. Denies weakness or paralysis or loss of use of either side. Denies problems with gait or speech. Denies sensory loss, numbness, or tingling. Denies seizures. PSYCHIATRIC: Denies anxiety or stress. Denies depression, suicidal ideation, or homicidal ideation. ALL OTHER SYSTEMS REVIEWED AND NEGATIVE. Dictation was performed using [employer] voice recognition software PHYSICAL EXAMINATION: GENERAL: Diaphoretic in moderate distress HEAD: Atraumatic, normocephalic. EYES: Pupils equal round and reactive to light, extraocular movements intact, sclera anicteric, conjunctiva are normal. ENT: Nares patent, oropharynx clear without exudates. Moist mucous membranes. NECK: Normal range of motion, supple without lymphadenopathy LUNGS: Breath sounds clear to auscultation bilaterally and equal. No wheezes rales or rhonchi. HEART: Regular rate and rhythm without murmurs ABDOMEN: Soft abdomen generalized tenderness no guarding Musculoskeletal: Normal range of motion, no pitting or edema. No cyanosis. NEUROLOGICAL: Cranial nerves grossly intact. Normal speech, normal gait. Normal sensory, motor exams PSYCH: N diaphoretic SKIN: Warm, Dry, normal turgor, no rashes or lesions noted. Physical Exam - Vital signs Vitals: Pulse Resp BP Pulse Ox 70 22 H 141/93 H 100 06/15/17 12:00 06/15/17 12:00 06/15/17 12:00 06/15/17 12:00 Course - Re-evaluation Re-evalutation: Lab work pending, I had ordered a CT as well as medications while patient awaits to go to a room 06/15/17 13:56 It appears the patient while waiting for main side bed felt better pulled out his own IV and left. He did not speak with anyone and he did not make any one aware that he left. Therefore patient has eloped. Other patietns noted that he looked better, was no longer crying 06/15/17 18:51 - Vital Signs Vital signs: Temp Pulse Resp BP Pulse Ox 97.6 F 70 22 H 141/93 H 100 06/15/17 12:32 06/15/17 12:00 06/15/17 12:00 06/15/17 12:00 06/15/17 12:00 - Laboratory Result Diagrams: 06/15/17 12:25 06/15/17 12:25 Laboratory results interpreted by me: 06/15/17 06/15/17 12:25 12:25 WBC 14.1 H MCH 26.6 L RDW 15.5 H Seg Neutrophils % 80.7 H Absolute Neutrophils 11.3 H Calcium 11.4 H AST 70 H ALT 92 H Total Protein 9.5 H Albumin 5.7 H Discharge - Discharge Clinical Impression: Abdominal pain Qualifiers: Abdominal location: generalized Qualified Code(s): R10.84 - Generalized abdominal pain Condition: Stable Disposition: ELOPED Instructions: Abdominal Pain ([facility]) Additional Instructions: Follow up with your physician tomorrow for further care or return to the ED IMMEDIATELY if symptoms worsen or new concerns occur. If you cannot afford to follow up with your primary care physician a list of low cost clinics have been provided at the end of your discharge papers as well.
== END 2017-06-15 13:05 | disposition left against medical advice (07) ==
LOC: ER 11:44
DX: R10.84 Generalized abdominal pain (principal); R11.2 Nausea with vomiting, unspecified; R61 Generalized hyperhidrosis; F17.210 Nicotine dependence, cigarettes, uncomplicated; Z91.040 Latex allergy status; Z88.5 Allergy status to narcotic agent; Z53.20 Procedure and treatment not carried out because of patient's decision for unspecified reasons
CPT/HCPCS: 99284; 96361; 96374; 96375; 36415; 83690; 85025; 80053; J1200; J1630; J7030

== ENCOUNTER 2017-11-26 09:38 | Emergency (ER) | payer SELFPAY ==
[2017-11-26] MEDS ORDERED: NORMAL SALINE 1000 ML 1,000 ML IV ONE (10:22)
--- NOTE | 2017-11-26 10:24 | ER Document Report ---
ED Medical Screen (RME) - General Chief Complaint: Penile Pain Stated Complaint: TESTICLE PAIN Time Seen by Provider: 11/26/17 10:21 TRAVEL OUTSIDE OF THE [place] IN LAST 30 DAYS: No - HPI Notes: 11/26/17 10:23 Painful swollen testicle left greater than right ongoing for a week patient currently going through football training no other trauma states has urinated blood clots. 11/26/17 10:23 - Related Data Allergies/Adverse Reactions: latex [Latex] Allergy (Verified 11/26/17 09:41) oxycodone HCl [From Percocet] Allergy (Verified 11/26/17 09:41) Past Medical History - Social History Chew tobacco use (# tins/day): No Frequency of alcohol use: None Drug Abuse: Marijuana Renal/ Medical History: Denies: Hx Peritoneal Dialysis - Immunizations Immunizations up to date: Yes Hx Diphtheria, Pertussis, Tetanus Vaccination: Yes - 2014 Review of Systems - Review of Systems Genitourinary: Hematuria Male Genitourinary: Testicular pain -: Yes All other systems reviewed and negative Physical Exam - Vital signs Vitals: Temp Pulse Resp BP Pulse Ox 98.6 F 76 16 137/85 H 100 11/26/17 09:49 11/26/17 09:49 11/26/17 09:49 11/26/17 09:49 11/26/17 09:49 Interpretation: Normal - General General appearance: Appears well, Alert - HEENT Head: Normocephalic, Atraumatic Eyes: Normal Pupils: PERRL - Respiratory Respiratory status: No respiratory distress Chest status: Nontender Breath sounds: Normal Chest palpation: Normal - Cardiovascular Rhythm: Regular Heart sounds: Normal auscultation Murmur: No - Abdominal Inspection: Normal Distension: No distension Bowel sounds: Normal Tenderness: Nontender Organomegaly: No organomegaly - Genitourinary Tenderness: Testicle tender Scrotum: Swelling - Back Back: Normal, Nontender - Extremities General upper extremity: Normal inspection, Nontender, Normal color, Normal ROM , Normal temperature General lower extremity: Normal inspection, Nontender, Normal color, Normal ROM , Normal temperature, Normal weight bearing. No: Ned's sign - Neurological Neuro grossly intact: Yes Cognition: Normal Orientation: AAOx4 Guero Coma Scale Eye Opening: Spontaneous [place] Coma Scale Verbal: Oriented [place] Coma Scale Motor: Obeys Commands [place] Coma Scale Total: 15 Speech: Normal Motor strength normal: LUE, RUE, LLE, RLE Sensory: Normal - Psychological Associated symptoms: Normal affect, Normal mood - Skin Skin Temperature: Warm Skin Moisture: Dry Skin Color: Normal Course - Vital Signs Vital signs: Temp Pulse Resp BP Pulse Ox 98.6 F 76 16 137/85 H 100 11/26/17 09:49 11/26/17 09:49 11/26/17 09:49 11/26/17 09:49 11/26/17 09:49
[2017-11-26 11:04] LABS: APPEARANCE,URINE CLEAR; BILIRUBIN,URINE NEGATIVE (NEGATIVE); COLOR,URINE YELLOW; GLUCOSE, URINE NEGATIVE (NEGATIVE); KETONES,URINE NEGATIVE (NEGATIVE); LEUKOCYTE ESTERASE,URINE SMALL (NEGATIVE); NITRITE,URINE NEGATIVE (NEGATIVE); PROTEIN,URINE NEGATIVE (NEGATIVE); URINE SPECIFIC GRAVITY 1.019; UROBILINOGEN,URINE NEGATIVE mg/dL (<2.0)
[2017-11-26] MEDS ORDERED: KETOROLAC TROMETHAMINE INJ/PF 30 MG/1 ML SDV IV ONE (11:27)
[2017-11-26 11:32] LABS: ABSOLUTE BASOPHILS # (AUTO) 0.1 10^3/uL (0.0-0.2); ABSOLUTE LYMPHOCYTES (AUTO) 1.3 10^3/uL (0.5-4.7); ABSOLUTE MONOCYTES (AUTO) 1.1 10^3/uL (0.1-1.4); ABSOLUTE NEUT (AUTO) 7.4 10^3/uL (1.7-8.2); BASOPHILS % (AUTO) 0.6 % (0-2); EOSINOPHILS % (AUTO) 0.1 % (0-6); HEMATOCRIT 35.6 % (37.9-51.0); HEMOGLOBIN 11.5 g/dL (13.5-17.0); LYMPHOCYTES % (AUTO) 13.6 % (13-45); MEAN CORPUSCULAR HGB CONC 32.4 g/dL (32.0-36.0); MEAN CORPUSCULAR VOLUME 83 fl (80-97); MONOCYTES % (AUTO) 10.8 % (3-13); PLATELET COUNT 261 10^3/uL (150-450); RED BLOOD COUNT 4.27 10^6/uL (4.35-5.55); RED CELL DISTRIBUTION WIDTH 14.6 % (11.5-14.0); SEGMENTED NEUTROPHILS % (AUTO) 74.9 % (42-78); TOTAL CELLS COUNTED % (AUTO) 100 %; WHITE BLOOD COUNT 9.9 10^3/uL (4.0-10.5)
--- NOTE | 2017-11-26 11:39 | ER Document Report ---
ED GI/ - General Chief Complaint: Penile Pain Stated Complaint: TESTICLE PAIN Time Seen by Provider: 11/26/17 10:21 Notes: Patient says that he has a swollen left testicle since last Monday, 6 days ago. 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 Last Monday , 9 days ago, patient felt he needed to urinate so he sat on the toilet and was urinating and felt something "crunchy" pass out of his urethra and looked and found he had a small blood clot in the toilet. He did not have any pain passing this blood clot. Patient then recalls that the following day, Monday, he also passed a second clot, but has not had any further clots or blood in his urine or any such symptoms since then. On Monday, he noted swelling and pain of his left testicle which has increased during this past week. He had no preceding urinary tract symptoms such as burning or stinging or discharge or drip or pus. He does not recall any kind of unusual activity at work of straining himself, etc. He does play semi-pro football, but has not had any physical contact activity for several weeks. Has never had any problems with his testicles previously. TRAVEL OUTSIDE OF THE [place] IN LAST 30 DAYS: No - Related Data Allergies/Adverse Reactions: latex [Latex] Allergy (Verified 11/26/17 09:41) oxycodone HCl [From Percocet] Allergy (Verified 11/26/17 09:41) Past Medical History - Social History Smoking Status: Former Smoker Chew tobacco use (# tins/day): No Frequency of alcohol use: None Drug Abuse: Marijuana Family History: Reviewed & Not Pertinent Patient has suicidal ideation: No Patient has homicidal ideation: No Endocrine Medical History: Denies: Hx Diabetes Mellitus Type 1, Hx Diabetes Mellitus Type 2 Past Surgical History: Reports: None - Immunizations Immunizations up to date: Yes Hx Diphtheria, Pertussis, Tetanus Vaccination: Yes - 2014 Review of Systems - Review of Systems Notes: REVIEW OF SYSTEMS: CONSTITUTIONAL : Denies fever. EENT: Denies eye, ear, nose or mouth or throat pain or other symptoms. CARDIOVASCULAR: Denies chest pain. RESPIRATORY: Denies cough, chest congestion, or shortness of breath. GASTROINTESTINAL: Denies abdominal pain or nausea, vomiting, or diarrhea. GENITOURINARY: Denies difficulty or painful urinating, urinary frequency. See HPI. MUSCULOSKELETAL: Denies back or neck pain. Denies joint pain or swelling. SKIN: Denies rash or skin lesions. NEUROLOGICAL: Denies LOC or altered mental status. Denies headache. Denies sensory loss or motor deficits. ALL OTHER SYSTEMS REVIEWED AND NEGATIVE. Physical Exam - Vital signs Vitals: Temp Pulse Resp BP Pulse Ox 98.6 F 76 16 137/85 H 100 11/26/17 09:49 11/26/17 09:49 11/26/17 09:49 11/26/17 09:49 11/26/17 09:49 Interpretation: Normal - Notes Notes: PHYSICAL EXAMINATION: GENERAL: Well-appearing, in no acute distress, but appears to be in pain to move. HEAD: Atraumatic, normocephalic. EYES: Pupils equal round and reactive to light, extraocular movements intact. ENT: oropharynx clear without exudates. Moist mucous membranes. NECK: Normal range of motion, supple. LUNGS: Breath sounds clear and equal bilaterally. HEART: Regular rate and rhythm without murmurs. ABDOMEN: Soft, nontender. No guarding or rebound. No masses. Genitourinary: Patient's right testicle is normal size without any swelling or tenderness. The left testicle is moderately enlarged and few sleep tender and swollen. Feels warm to the touch. BACK: No tenderness throughout entire back. EXTREMITIES: Normal range of motion without pain. NEUROLOGICAL: Normal speech, normal gait. Normal sensory, motor, and reflex exams. Awake, alert, and oriented x3. Cranial nerves normal. PSYCH: Normal mood, normal affect. SKIN: Warm, dry, no rashes. Course - Vital Signs Vital signs: Temp Pulse Resp BP Pulse Ox 98.6 F 76 16 137/85 H 100 11/26/17 09:49 11/26/17 09:49 11/26/17 09:49 11/26/17 09:49 11/26/17 09:49 - Laboratory Result Diagrams: 11/26/17 11:02 11/26/17 11:02 Laboratory results interpreted by me: 11/26/17 11/26/17 11/26/17 10:25 10:25 11:02 RBC 4.27 L Hgb 11.5 L Hct 35.6 L RDW 14.6 H Creatine Kinase Urine Blood SMALL H Ur Leukocyte Esterase SMALL H Chlamydia DNA (PCR) DETECTED H 11/26/17 11:02 RBC Hgb Hct RDW Creatine Kinase 383 H Urine Blood Ur Leukocyte Esterase Chlamydia DNA (PCR) Discharge - Discharge Clinical Impression: Hydrocele, Varicocele, Chlamydia infection Condition: Stable Disposition: HOME, SELF-CARE Instructions: Azithromycin ([facility]), Chlamydia ([facility]), Doxycycline ([facility]) Additional Instructions: Testicular Pain Sometimes we can't prove the exact cause of testicle pain. Pain in the testicle can be caused by many different problems, including viral infections of the testicle, urinary tract infection, kidney stones, inflammation of the epididymis (the sac behind the testicle), hernia, dilated veins in the scrotum, or subtle injury. The most serious causes of testicular pain are tumor or twisting of the testicle. An ultrasound exam often shows what's wrong. When the initial testing doesn 't show a cause for the pain, we usually refer to a urologist. Rest. Gentle warmth may help with symptoms. It's usually helpful to wear underwear that gives good support to the testicles ("briefs" instead of "boxers "). Call the doctor or return if there is sudden worsening of pain, fever, vomiting, testicle swelling, or discoloration of the scrotum. Hydrocele You have been diagnosed as having a hydrocele. The sac that holds the testicles is called the scrotum. A hydrocele is usually a painless collection of fluid in the membrane that covers the testicle(s). This may be present at or develop later on in life. The cause is usually unknown. In infants a hydrocele can be due to a miscommunication of the fluid surrounding the testes. In adults a hydrocele may form due to injury or inflammation of surrounding structures. Most hydroceles require no treatment, and usually resolve on their own. However, sometimes surgical intervention is recommended for recurrent, or for unusually large hydroceles. The surgery to fix a hydrocele is a minor procedure and usually takes about 1 and 1/2 hours. TORADOL INJECTION: You have been given an injection of ketorolac tromethamine (Toradol). This is an excellent, safe drug for pain control. It also has potent antiinflammatory action. You should have significant pain relief within about one hour. Toradol is not addicting and is non-sedating. It does not interfere with driving or work. Call or return if you develop itching, hives, shortness of breath, or rash. ANTIBIOTIC THERAPY: You have been given an antibiotic prescription. It's important that you take all the medication, unless instructed otherwise by your physician. Failure to complete the entire course can result in relapse of your condition. Common side effects of antibiotics include nausea, intestinal cramping, or diarrhea. Women may develop vaginal yeast infections, and babies can get yeast (thrush) in the mouth following the use of antibiotics. Contact your physician if you develop significant side effects from this medication. Allergy to this antibiotic can result in hives, wheezing, faintness, or itching. If symptoms of allergy occur, stop the medication and call the doctor. Rocephin You have been given an injection of an antibiotic called Rocephin ( ceftriaxone). Sometimes the injection must be combined with antibiotic pills. For some infections, such as an uncomplicated ear infection, Rocephin provides all the antibiotic that's needed. The antibiotic will be in your body for about two days. For serious infections, we usually repeat doses of Rocephin daily. Side effects are very unusual following a shot. Women may develop vaginal yeast infections, and babies can get yeast (thrush) in the mouth following the use of antibiotics. Contact your physician if you have symptoms with this medication. Allergy to this antibiotic can result in hives, wheezing, faintness, or itching. If symptoms of allergy occur, call the doctor at once. AZITHROMYCIN: Azithromycin (Zithromax) is a broad spectrum antibiotic in the same class as erythromycin. It can treat a variety of bacterial infections, but is most frequently used for respiratory infections. Azithromycin is extremely long-lasting. It accumulates in body tissues and continues to kill bacteria for many days. In order to improve absorption, Azithromycin should be taken at least one hour before or two hours after a meal. It does not have the same strong tendency to upset the stomach as erythromycin and is usually very well tolerated. Patients who have had a rash or other true allergic reactions to erythromycin should not take this medication. Call if you develop gastrointestinal distress, severe diarrhea, rash, hives, itching, or shortness of breath. FOLLOW-UP CARE: If you have been referred to a physician for follow-up care, call the physician s office for an appointment as you were instructed or within the next two days. If you experience worsening or a significant change in your symptoms, notify the physician immediately or return to the Emergency Department at any time for re-evaluation. Your symptoms should begin to resolve in the next 24-48 hours and gradually get better over the coming week. If you are noting worsening symptoms pain and more swelling, fever, etc., return at any time for us to reevaluate your condition. Forms: Return to Work
[2017-11-26 11:49] LABS: ANION GAP 9 (5-19); BLOOD UREA NITROGEN 10 mg/dL (7-20); CALCIUM 8.7 mg/dL (8.4-10.2); CARBON DIOXIDE 27 mmol/L (22-30); CHLORIDE 105 mmol/L (98-107); CREATINE KINASE 383 U/L (55-170); GLUCOSE 86 mg/dL (75-110); POTASSIUM 4.2 mmol/L (3.6-5.0); SODIUM 140.6 mmol/L (137-145)
[2017-11-26 12:31] LABS: CHLAM PCR DETECTED (NOT DETECT); GON PCR NOT DETECTED (NOT DETECT)
--- NOTE | 2017-11-26 12:41 | RADIOLOGY REPORT (SQ) ---
EXAM DESCRIPTION: U/S SCROTUM W/DOPPLER COMPLETED DATE/TIME: 11/26/2017 12:06 pm REASON FOR STUDY: painful swollen testiclles COMPARISON: None. TECHNIQUE: Static and realtime lucero scale imaging of the scrotum and testes. Selected color Doppler and spectral images recorded to document blood flow. LIMITATIONS: None. FINDINGS: RIGHT: TESTICLE: The right testicle is normal measuring 4.2 x 2.5 x 2.8 cm. The right testicle demonstrates normal echogenicity. Doppler flow to the right testicle noted. EPIDIDYMIS: The right epididymis measures 1.5 x 0.8 x 0.9 cm. Right epididymis demonstrates normal e chogenicity. HYDROCELE OR VARICOCELE: No. HERNIA OR EXTRA-TESTICULAR MASS: No. OTHER: No other significant finding. LEFT: TESTICLE: The left testicle measures 4.2 x 2.4 x 2.7 cm. The left testicle demonstrates normal echog enicity. Doppler flow to the left testicle noted. EPIDIDYMIS: The left epididymis measures 2.2 x 1.2 x 1.2 cm. 0.6 x 0.6 x 0.8 cm epididymal cyst. HYDROCELE OR VARICOCELE: Varicocele of the left testicle noted. Hydrocele the left testicle noted. HERNIA OR EXTRA-TESTICULAR MASS: No. OTHER: No other significant finding. IMPRESSION: FINDINGS CONSISTENT WITH VARICOCELE LEFT TESTICLE. HYDROCELE LEFT TESTICLE. OTHERWISE, NO SIGNIFICANT ABNORMALITY SEEN. TECHNICAL DOCUMENTATION: JOB ID: [id number] 2010 [employer]- All Rights Reserved Reading location - IP/workstation name: [email or web address]
[2017-11-26] MEDS ORDERED: CEFTRIAXONE INJ 500 MG VIAL IV ONE (13:18)
[2017-11-26] MEDS ORDERED: AZITHROMYCIN 250 MG TABLET PO ONE (13:19)
[2017-11-26 14:02] VITALS: BP 138/87
== END 2017-11-26 14:00 | disposition home or self-care (01) ==
LOC: ER 09:38
DX: N43.3 Hydrocele, unspecified (principal); I86.1 Scrotal varices; A74.9 Chlamydial infection, unspecified; Z91.040 Latex allergy status; Z88.5 Allergy status to narcotic agent; Z87.891 Personal history of nicotine dependence
CPT/HCPCS: 99284; 96361; 96375; 96365; 36415; 87086; 82550; 85025; 80048; 81001; 87491; 87591; 76870; 93976; J1885; J0696; J7030

== ENCOUNTER 2018-05-16 08:49 | Emergency (ER) | payer SELFPAY ==
--- NOTE | 2018-05-16 09:29 | ER Document Report ---
ED Medical Screen (RME) - General Chief Complaint: Chest Pressure Stated Complaint: CHEST PRESSURE Time Seen by Provider: 05/16/18 09:27 Notes: 33 years old male with a history of patient counselled regarding cessation for 4 minutes cannabis, multiple visits for abdominal pain, presents with chest tightness since yesterday. 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 The pain is persistent nonradiating not associated with any nausea vomiting pa lpitation or diaphoresis. Chronic abdominal pain. No nausea vomiting. Says loose stools 2-3 times a day. No dysuria frequency urgency. No obvious chest wall tenderness noted on palpation. Abdomen nontender TRAVEL OUTSIDE OF THE [place] IN LAST 30 DAYS: No - Related Data Allergies/Adverse Reactions: latex [Latex] Allergy (Verified 05/16/18 08:52) oxycodone HCl [From Percocet] Allergy (Verified 05/16/18 08:52) Past Medical History - Social History Chew tobacco use (# tins/day): No Frequency of alcohol use: None Drug Abuse: None, Marijuana Endocrine Medical History: Denies: Hx Diabetes Mellitus Type 1, Hx Diabetes Mellitus Type 2 Renal/ Medical History: Denies: Hx Peritoneal Dialysis - Immunizations Immunizations up to date: Yes Hx Diphtheria, Pertussis, Tetanus Vaccination: Yes - 2014 Physical Exam - Vital signs Vitals: Temp Pulse Resp BP Pulse Ox 98.3 F 60 16 141/84 H 100 05/16/18 09:00 05/16/18 09:00 05/16/18 09:00 05/16/18 09:00 05/16/18 09:00 Course - Vital Signs Vital signs: Temp Pulse Resp BP Pulse Ox 98.3 F 60 16 141/84 H 100 05/16/18 09:00 05/16/18 09:00 05/16/18 09:00 05/16/18 09:00 05/16/18 09:00
--- NOTE | 2018-05-16 10:10 | RADIOLOGY REPORT (SQ) ---
EXAM DESCRIPTION: CHEST SINGLE VIEW COMPLETED DATE/TIME: 05/16/2018 9:50 am REASON FOR STUDY: Chest pain COMPARISON: 12/16/2012 EXAM PARAMETERS: NUMBER OF VIEWS: One view. TECHNIQUE: Single frontal radiographic view of the chest acquired. RADIATION DOSE: NA LIMITATIONS: None. FINDINGS: LUNGS AND PLEURA: No focal airspace disease, pleural effusion. No definite pneumothorax. Single linear line at the left lung apex thought to be artifactual. MEDIASTINUM AND HILAR STRUCTURES: No masses. Contour normal. HEART AND VASCULAR STRUCTURES: Heart normal in size. Normal vasculature. BONES: No acute findings. HARDWARE: None in the chest. OTHER: No other significant finding. IMPRESSION: No definite acute cardiopulmonary process. Linear left apical density felt to be artifa ctual. If high clinical concern for left-sided pneumothorax consider repeat expiration radiograph. TECHNICAL DOCUMENTATION: JOB ID: [id number] [employer]- All Rights Reserved Reading location - IP/workstation name: [email or web address]
--- NOTE | 2018-05-16 10:11 | ER Document Report ---
ED General - General Chief Complaint: Chest Pressure Stated Complaint: CHEST PRESSURE Time Seen by Provider: 05/16/18 09:27 TRAVEL OUTSIDE OF THE [place] IN LAST 30 DAYS: No - HPI Notes: Patient is a 33-year-old male with no significant past medical history aside from chronic intermittent abdominal pain who presents to the emergency department pectoral chest pain that occurred when he was lifting a box at work yesterday. Patient states the box was relatively heavy at that time. Patient states that the pain has been relatively constant since then does not radiate. Patient states that stretching his pectoral does increase his pain. Is able to ambulate without dyspnea on exertion or shortness of breath. He does not have any associated diaphoresis or dizziness. Patient states that he is also had umbilical abdominal pain chronically and states that he is usually here once every 3 months without any obvious diagnosis. Patient states that he has had CT scans in the past as well. He is eating and drinking without difficulty, but does have occasional nausea and vomiting which is not unusual for him. Patient states that he has had some loose stools without any melena or hematochezia. He is urinating normally. No other concerns or complaints at this time. No surgical history to his abdomen. Denies any prolonged immobilization, distance travel, recent surgery/trauma, personal cancer history, hormone use, smoking, or previous DVT/PE. Denies any headache, fever, neck pain, URI, sore throat, palpitations, syncope, cough, shortness of breath, wheeze, dyspnea, urinary retention, dysuria, hematuria, back pain, loss of control of bowel or bladder, numbness/tingling, saddle anesthesia, muscle paralysis/weakness, or rash. - Related Data Allergies/Adverse Reactions: latex [Latex] Allergy (Verified 05/16/18 08:52) oxycodone HCl [From Percocet] Allergy (Verified 05/16/18 08:52) Past Medical History - Social History Smoking Status: Never Smoker Chew tobacco use (# tins/day): No Frequency of alcohol use: None Drug Abuse: None, Marijuana Family History: Reviewed & Not Pertinent Patient has suicidal ideation: No Patient has homicidal ideation: No Endocrine Medical History: Denies: Hx Diabetes Mellitus Type 1, Hx Diabetes Mellitus Type 2 Renal/ Medical History: Denies: Hx Peritoneal Dialysis - Immunizations Immunizations up to date: Yes Hx Diphtheria, Pertussis, Tetanus Vaccination: Yes - 2014 Review of Systems - Review of Systems -: Yes All other systems reviewed and negative Physical Exam - Vital signs Vitals: Temp Pulse Resp BP Pulse Ox 98.3 F 60 16 141/84 H 100 05/16/18 09:00 05/16/18 09:00 05/16/18 09:00 05/16/18 09:00 05/16/18 09:00 - Notes Notes: PHYSICAL EXAMINATION: GENERAL: Well-appearing, well-nourished and in no acute distress. HEAD: Atraumatic, normocephalic. EYES: Pupils equal round and reactive to light, extraocular movements intact, sclera anicteric, conjunctiva are normal. ENT: Nares patent and without discharge. oropharynx clear without exudates. No tonsilar hypertrophy or erythema. Moist mucous membranes. NECK: Normal range of motion, supple without lymphadenopathy Chest: + reproducible tenderness to palpation of the Lt pectoral area and reproducible with Left arm extension/abduction. LUNGS: Breath sounds clear to auscultation bilaterally and equal. No wheezes rales or rhonchi. HEART: Regular rate and rhythm without murmurs, rubs, gallops. ABDOMEN: Soft, nondistended abdomen. No guarding, no rebound. No masses appreciated. Normal bowel sounds present. No CVA tenderness bilaterally. + very small reducible umbilical hernia that reproduces pt's symptoms when palpated. No tenderness at [place]. Dent neg. Musculoskeletal: FROM to passive/active. Strength 5+/5. Ned neg. No asymmetry to LE's. Extremities: No cyanosis, clubbing, or edema b/l. Peripheral pulses 2+. Capillary refill less than 3 seconds. NEUROLOGICAL: Normal speech, normal gait. PSYCH: Normal mood, normal affect. SKIN: Warm, Dry, normal turgor, no rashes or lesions noted. Course - Re-evaluation Re-evalutation: 05/16/18 12:09 Patient is an afebrile, well-hydrated 33-year-old male who presents to the ED with chest wall pain and very small reducible umbilical hernia. Vitals are acce ptable without any significant tachycardia, tachypnea, or hypoxia. PE is otherwise unremarkable aside from the reproducible chest wall tenderness with ROM and palpation. Patient is nontoxic-appearing and is tolerating p.o. without any difficulties. Pt is currently asymptomatic. CBC, CMP, EKG/cardiac enzymes, chest x-ray and KUB are all unremarkable for any acute pathology. Patient has a heart score of 0, Wells score of 0, and is PERC negative. Patient does not have any chest pain, dyspnea, or shortness of breath. Patient's presentation and symptomatology creates low suspicion for ACS, PE, pneumothorax, pericarditis, dissection, respiratory compromise, severe dehydration, sepsis, meningitis, or other systemic emergent condition at this time. Patient is aware that his condition can change from initial presentation and he needs to monitor symptoms closely and seek medical attention for any acute changes. Pt is feeling better and would like to go home. Recommend conservative measures for symptoms. Recheck with your PCM in 2-3 days. Consider consult with Cardiology. Return to the ED with any worsening/concerning symptoms otherwise as reviewed in discharge. Patient is in agreement. - Vital Signs Vital signs: Temp Pulse Resp BP Pulse Ox 98.3 F 60 16 144/90 H 100 05/16/18 09:00 05/16/18 09:00 05/16/18 09:00 05/16/18 10:03 05/16/18 09:00 - Laboratory Result Diagrams: 05/16/18 09:30 05/16/18 11:32 Laboratory results interpreted by me: 05/16/18 05/16/18 09:30 11:32 Hgb 12.4 L MCH 26.8 L RDW 15.1 H Seg Neutrophils % 81.3 H Sodium 136.9 L Creatine Kinase 293 H Discharge - Discharge Clinical Impression: Chest wall pain Umbilical hernia Qualifiers: Obstruction and gangrene presence: without obstruction or gangrene Qualified Code(s): K42.9 - Umbilical hernia without obstruction or gangrene Condition: Stable Disposition: HOME, SELF-CARE Instructions: Chest Wall Pain ([facility]), Umbilical Hernia ([facility]) Additional Instructions: Maintain adequate fluid and food intake Take home medications as directed Healthy diet Monitor blood pressure daily and keep a log Monitor symptoms for any acute changes Recheck with your PCM in 3-5 days Consider consult with a general surgeon for evaluation Consider a follow-up with cardiology Return to the ED with any worsening symptoms and/or development of fever, headache, chest pain, palpitations, syncope, shortness of breath, trouble breathing, abdominal pain, n/v/d, blood in stool/urine, loss of control of bowel/bladder, urinary retention, muscle weakness/paralysis, numbness/tingling, or other worsening symptoms that are concerning to you. Forms: Elevated Blood Pressure Referrals: MU VEGA MD [ACTIVE STAFF] - Follow up as needed
--- NOTE | 2018-05-16 10:11 | RADIOLOGY REPORT (SQ) ---
EXAM DESCRIPTION: KUB/ABDOMEN (SINGLE VIEW) COMPLETED DATE/TIME: 05/16/2018 9:50 am REASON FOR STUDY: Abdominal pain COMPARISON: None. NUMBER OF VIEWS: One view. TECHNIQUE: Supine radiographic image of the abdomen acquired. LIMITATIONS: None. FINDINGS: BOWEL GAS PATTERN: Normal bowel gas pattern. No dilated loops. CALCIFICATIONS: No suspicious calcifications. SOFT TISSUES: No gross mass or suggestion of organomegaly. HARDWARE: None in the abdomen. BONES: No acute fracture. No worrisome bone lesions. OTHER: No other significant finding. IMPRESSION: Nonobstructive pattern of bowel gas with gas and stool present to the rectum. No free a ir in the abdomen. TECHNICAL DOCUMENTATION: JOB ID: [id number] [employer]- All Rights Reserved Reading location - IP/workstation name: [email or web address]
[2018-05-16 10:24] LABS: TROPONIN I < 0.012 ng/mL
[2018-05-16 10:27] LABS: ABSOLUTE LYMPHOCYTES (AUTO) 1.1 10^3/uL (0.5-4.7); ABSOLUTE MONOCYTES (AUTO) 0.4 10^3/uL (0.1-1.4); BASOPHILS % (AUTO) 0.4 % (0-2); EOSINOPHILS % (AUTO) 0.3 % (0-6); HEMATOCRIT 38.6 % (37.9-51.0); HEMOGLOBIN 12.4 g/dL (13.5-17.0); LYMPHOCYTES % (AUTO) 13.1 % (13-45); MEAN CORPUSCULAR HEMOGLOBIN 26.8 pg (27.0-33.4); MEAN CORPUSCULAR HGB CONC 32.1 g/dL (32.0-36.0); MEAN CORPUSCULAR VOLUME 84 fl (80-97); MONOCYTES % (AUTO) 4.9 % (3-13); PLATELET COUNT 245 10^3/uL (150-450); RED BLOOD COUNT 4.61 10^6/uL (4.35-5.55); RED CELL DISTRIBUTION WIDTH 15.1 % (11.5-14.0); SEGMENTED NEUTROPHILS % (AUTO) 81.3 % (42-78); TOTAL CELLS COUNTED % (AUTO) 100 %; WHITE BLOOD COUNT 8.5 10^3/uL (4.0-10.5)
--- NOTE | 2018-05-16 11:08 | EKG REPORT ---
SEVERITY:- ABNORMAL ECG - SINUS RHYTHM LEFT VENTRICULAR HYPERTROPHY ANTERIOR INFARCT, AGE INDETERMINATE : Confirmed by: Lc David MD 16-May-2018 11:07:21
[2018-05-16 12:00] LABS: ALANINE AMINOTRANSFERASE 41 U/L (21-72); ALBUMIN 4.2 g/dL (3.5-5.0); ALKALINE PHOSPHATASE 43 U/L (38-126); ANION GAP 5 (5-19); ASPARTATE AMINO TRANSFERASE 27 U/L (17-59); BILIRUBIN,TOTAL 0.6 mg/dL (0.2-1.3); BLOOD UREA NITROGEN 12 mg/dL (7-20); CALCIUM 9.5 mg/dL (8.4-10.2); CARBON DIOXIDE 29 mmol/L (22-30); CHLORIDE 103 mmol/L (98-107); CREATINE KINASE 293 U/L (55-170); GLUCOSE 86 mg/dL (75-110); POTASSIUM 4.1 mmol/L (3.6-5.0); SODIUM 136.9 mmol/L (137-145); TOTAL PROTEIN 6.7 g/dL (6.3-8.2)
[2018-05-16] MEDS ORDERED: KETOROLAC TROMETHAMINE INJ/PF 30 MG/1 ML SDV IV ONE (12:11)
[2018-05-16 12:24] VITALS: BP 147/90
== END 2018-05-16 12:31 | disposition home or self-care (01) ==
LOC: ER 08:49
DX: R07.89 Other chest pain (principal); X50.0XXA Overexertion from strenuous movement or load, initial encounter; Y99.0 Civilian activity done for income or pay; K42.9 Umbilical hernia without obstruction or gangrene; R11.2 Nausea with vomiting, unspecified; R19.4 Change in bowel habit; Z91.040 Latex allergy status; Z88.5 Allergy status to narcotic agent
CPT/HCPCS: 36415; 71045; 74018; 80053; 82550; 82553; 84484; 85025; 93005; 93010; 99285

== ENCOUNTER 2019-01-21 07:45 | Emergency (ER) | payer SELFPAY ==
[2019-01-21] MEDS ORDERED: FENTANYL CITRATE INJ/PF 100 MCG/2 ML AMPUL IV ONE ×2 (08:06→09:19)
[2019-01-21] MEDS ORDERED: DIPH/PERTUSS(ACELL)/TETANUS VAC/PF 0.5 ML SYR (>=10YO) IM ONE (08:09)
[2019-01-21] MEDS ORDERED: TETRACAINE HCL 0.5% OPH SOLN 4 ML OD ONE (08:14)
--- NOTE | 2019-01-21 08:18 | ER Document Report ---
ED Animal Bite - General Chief Complaint: Dog Bite Stated Complaint: DOG BITE/RIGHT EYEBROW Time Seen by Provider: 01/21/19 08:01 Notes: Patient is a 34 year-old male who presents to the ED with a dog bite to his right eyebrow. He was "rough housing" with his dog and was bit in the face. This happened just prior to arrival to the emergency department. The dog is by the patient. Patient states that the dog is up-to-date on his immunizations. Patient is unsure of when his last tetanus vaccine was. Patient states that he is able to open his eye a little bit, but cannot discern whether or not he might have been scratched on his eye. TRAVEL OUTSIDE OF THE [place] IN LAST 30 DAYS: No - Related Data Allergies/Adverse Reactions: latex [Latex] Allergy (Verified 01/21/19 07:46) oxycodone HCl [From Percocet] Allergy (Verified 01/21/19 07:46) Past Medical History - Social History Smoking Status: Never Smoker Drug Abuse: Marijuana Family History: Reviewed & Not Pertinent Endocrine Medical History: Denies: Hx Diabetes Mellitus Type 1, Hx Diabetes Mellitus Type 2 Renal/ Medical History: Denies: Hx Peritoneal Dialysis - Immunizations Immunizations up to date: Yes Hx Diphtheria, Pertussis, Tetanus Vaccination: Yes - 2014 Review of Systems - Review of Systems Notes: REVIEW OF SYSTEMS: CONSTITUTIONAL : Denies recent illness. Denies recent unintentional weight loss. Denies fever, chills, or sweats. EENT: See HPI. CARDIOVASCULAR: Denies chest pain. RESPIRATORY: Denies shortness of breath, cough, congestion, difficulty breathing, or wheezing. GASTROINTESTINAL: Denies nausea, vomiting, and diarrhea. Denies abdominal pain. Denies constipation. GENITOURINARY: Denies difficulty urinating, burning, blood in urine, urgency or frequency. MUSCULOSKELETAL: Denies neck and back pain. Denies joint pain or swelling. SKIN: Denies rash, itchiness, or lesions HEMATOLOGIC : Denies easy bruising or bleeding. LYMPHATIC: Denies swollen, painful, enlarged glands. NEUROLOGICAL: Denies no numbness or tingling denies weakness. Denies headache. Denies altered mental status. Denies alteration in speech. PSYCHIATRIC: Denies stress, anxiety, alteration in sleep patterns, or depression. All other systems reviewed and negative. Physical Exam - Vital signs Vitals: Temp Pulse Resp BP Pulse Ox 98.1 F 83 20 178/105 H 99 01/21/19 07:49 01/21/19 07:49 01/21/19 07:49 01/21/19 07:49 01/21/19 07:49 - Notes Notes: PHYSICAL EXAMINATION: GENERAL: Appears well, healthy, well-nourished, no acute distress. HEAD: Normocephalic, atraumatic. EYES: PERRL, irritation noted to right eye on fluorescein stain at 3 o'clock position, all extraocular movements intact, sclera nonicteric ENT: Moist mucous membranes. NECK: Supple, no noticeable swelling, redness, rash. Normal range of motion. LUNGS: Equal breath sounds bilaterally and clear to auscultation. No wheezes rales or rhonchi. CARDIOVASCULAR: S1-S2, regular rate, regular rhythm. Radial pulses 2+, normal. ABDOMEN: Normoactive bowel sounds. Soft, nontender, no guarding, no rebound tenderness, and no masses palpated. EXTREMITIES: Normal strength and range of motion, no pitting or edema. No cyanosis. NEUROLOGICAL: Moves all extremities upon command. Strength 5/5 in all extremities. PSYCH: Normal mood, normal affect. SKIN: Warm, dry. Large avulsion to her right eyebrow. Normal skin turgor. Course - Re-evaluation Re-evalutation: 01/21/19 09:[address] Vázquez and Dr. Rodrigues come to bedside to evaluate the patient. I also did a fluorescein stain eye exam and there was a small amount of irritation noted to the patient's right eye. No globe rupture noted. Negative Sascha sign. 01/21/19 09:[address] Devlin, our local plastic surgeon. He would like to see pictures of the wound and assess the wound. Pictures of the wound were forwarded to him. 01/21/2019 10:15 Dr. Devlin called me back and stated that there was not anything he could do at this time. He is suggesting that the edges of the wound be brought together and the patient can follow-up with him outpatient. 01/21/19 11:34 4 sutures were placed to the patient's right eye brow. He tolerated the procedure well. His skin came together nicely and the wound was able to close a little with a small amount open for any drainage. Patient has chosen to be vaccinated with rabies vaccine. I will start him on Polytrim eyedrops. He will also be started on Augmentin for prophylactic antibiotic treatment. Follow-up precautions were given. Verbal discharge instructions were given to the patient. They verbalized understanding. They are stable for discharge. - Vital Signs Vital signs: Temp Pulse Resp BP Pulse Ox 98.8 F 61 18 139/81 H 100 01/21/19 11:33 01/21/19 11:33 01/21/19 11:33 01/21/19 11:01/21/19 11:33 Procedures - Laceration/Wound Repair Right eyebrow Wound length (cm): 2 Wound's Depth, Shape: Other - Avulsion Laceration pre-procedure: Sterile PPE donned, Shur-Clens applied Anesthetic type: 1% Lidocaine Volume Anesthetic (mLs): 3 Wound explored: Clean, No foreign body removed Irrigated w/ Saline (mLs): 30 Wound Debrided: Minimal Wound Repaired With: Sutures Suture Size/Type: 6:0, Nylon Number of Sutures: 4 Layer Closure?: No Post-procedure wound care: Sterile dressing applied Post-procedure NV exam normal: Yes Complications: No Discharge - Discharge Clinical Impression: Dog bite Qualifiers: Encounter type: initial encounter Qualified Code(s): W54.0XXA - Bitten by dog, initial encounter Eyebrow laceration Qualifiers: Encounter type: initial encounter Laterality: right Qualified Code(s): S01.111A - Laceration without foreign body of right eyelid and periocular area, initial encounter Condition: Stable Disposition: HOME, SELF-CARE Instructions: Laceration Care (OM), Prophylactic Antibiotic (OM), Soap Cleansing (OM), Tetanus Immunization Given ([facility]) Additional Instructions: You were seen today in the emergency department for a laceration to your right eyebrow from dog bite. Wearing eye patch as tolerated. You are being sent home with antibiotic eyedrops. Place 1 drop in your right eye 4 times a day. Take all your antibiotics as prescribed. Follow-up in 3 days for your rabies vaccine and wound recheck. Take Tylenol 1000 mg and ibuprofen 600 mg every 6 hours for your pain. Keep your wound clean and dry. Prescriptions: Amox Tr/Potassium Clavulanate [Augmentin 875-125 Tablet] 1 tab PO BID 7 Days #14 tablet Forms: Return to Work
[2019-01-21] MEDS ORDERED: AMOXICILLIN TRIHYD 250 MG CAPSULE PO ONE (09:19)
[2019-01-21] MEDS ORDERED: AMOXICILLIN TR/POT CLAVULANATE 500-125 MG TAB PO ONE (09:19)
[2019-01-21] MEDS ORDERED: LIDOCAINE 1% INJ-PF (10 MG/ML) 30 ML SDV INJ ONE (09:51)
[2019-01-21] MEDS ORDERED: POLYMYXIN B SULFATE/TMP OPH SOLN (10 ML/ER DISP) OD PRN (11:35)
[2019-01-21] MEDS ORDERED: RABIES VACCINE (PCEC)/PF 2.5 UNIT/1 ML KIT IM ONE (11:40)
[2019-01-21 11:46] VITALS: BP 139/81
[2019-01-21] MEDS ORDERED: HYDROCODONE/ACETAMINOPHEN 5-325 MG (6 TAB/ER DISP) PO PRN (12:05)
== END 2019-01-21 12:07 | disposition home or self-care (01) ==
LOC: ER 07:45
DX: S01.111A Laceration without foreign body of right eyelid and periocular area, initial encounter (principal); W54.0XXA Bitten by dog, initial encounter; Z23 Encounter for immunization
CPT/HCPCS: 90715; 12011; J3490 ×4; J3010; 90471; 96374; 96376; 99283

== ENCOUNTER 2019-01-31 09:32 | Emergency (ER) | payer SELFPAY ==
[2019-01-31 09:36] VITALS: BP 117/77
--- NOTE | 2019-01-31 09:58 | ER Document Report ---
HPI - HPI Time Seen by Provider: 01/31/19 09:57 Notes: Patient is a 34-year-old male who presents for suture removal status post placement 10 days ago to the right eyebrow. Patient states that he has not had any complications with the wound. He has not noticed any redness, purulence, separation of the wound. Pt states that one suture came out already by accident. He has no other concerns or complaints. He is eating and drinking without difficulty. He has been taking his antibiotics. Denies any headache, fever, neck pain, URI, sore throat, chest pain, palpitations, syncope, cough, shortness of breath, wheeze, dyspnea, abdominal pain, nausea/vomiting/diarrhea, urinary retention, dysuria, hematuria, or rash. - ROS Systems Reviewed and Negative: Yes All other systems reviewed and negative - REPRODUCTIVE Reproductive: DENIES: : Past Medical History - Social History Smoking Status: Unknown if Ever Smoked Family History: Reviewed & Not Pertinent Endocrine Medical History: Denies: Hx Diabetes Mellitus Type 1, Hx Diabetes Mellitus Type 2 Renal/ Medical History: Denies: Hx Peritoneal Dialysis - Immunizations Immunizations up to date: Yes Hx Diphtheria, Pertussis, Tetanus Vaccination: Yes - 2014 [facility] Provider Document - CONSTITUTIONAL Agree With Documented VS: Yes Notes: PHYSICAL EXAMINATION: GENERAL: Well-appearing, well-nourished and in no acute distress. HEAD: Atraumatic, normocephalic. EYES: Pupils equal round and reactive to light, extraocular movements intact, sclera anicteric, conjunctiva are normal. ENT: Nares patent and without discharge. oropharynx clear without exudates. No tonsilar hypertrophy or erythema. Moist mucous membranes. NECK: Normal range of motion, supple without lymphadenopathy LUNGS: Breath sounds clear to auscultation bilaterally and equal. No wheezes rales or rhonchi. HEART: Regular rate and rhythm without murmurs, rubs, gallops. NEUROLOGICAL: Cranial nerves grossly intact. Normal speech, normal gait. PSYCH: Normal mood, normal affect. SKIN: Rt eyebrow: [address] No erythema, warmth, fluctuance, induration, tenderness, streaks. No obvious wound dehiscence. - INFECTION CONTROL TRAVEL OUTSIDE OF THE [place] IN LAST 30 DAYS: No Course - Re-evaluation Re-evalutation: 01/31/19 10:00 Patient is an afebrile, well-hydrated, 34-year-old male who presents for suture removal. There is no evidence of wound dehiscence or infection. Vitals are acceptable without significant tachycardia, tachypnea, or hypoxia. No further work-up warranted. Sutures removed successfully without any complications. Patient to recheck with his PCM/plastic surgery if needed. Return to the ED with any other worsening/concerning symptoms. Patient is in agreement. - Vital Signs Vital signs: Temp Pulse Resp BP Pulse Ox 98.7 F 76 16 117/77 96 01/31/19 09:35 01/31/19 09:35 01/31/19 09:35 01/31/19 09:35 01/31/19 09:35 Discharge - Discharge Clinical Impression: Encounter for removal of sutures Condition: Stable Disposition: HOME, SELF-CARE Instructions: Suture Removal Additional Instructions: Keep the skin clean Wash with soap and water Tylenol/ibuprofen if needed Monitor for any worsening symptoms Recheck with your PCM in 3-5 days Consider consult with Plastic Surgery if needed Return to the ED with any worsening symptoms and/or development of fever, headache, chest pain, palpitations, syncope, shortness of breath, trouble breathing, abdominal pain, n/v/d, abscess, purulent discharge, red streaks, worsening swelling, or other worsening symptoms that are concerning to you. Referrals: BEATRIZ STEPHENS MD [ACTIVE STAFF] - Follow up as needed
== END 2019-01-31 10:14 | disposition home or self-care (01) ==
LOC: ER 09:32
DX: Z48.02 Encounter for removal of sutures (principal)

== ENCOUNTER 2020-05-25 07:41 | Emergency (ER) | payer SELFPAY ==
[2020-05-25 08:24] LABS: ABSOLUTE BASOPHILS # (AUTO) 0.1 10^3/uL (0.0-0.2); ABSOLUTE LYMPHOCYTES (AUTO) 0.8 10^3/uL (0.5-4.7); ABSOLUTE MONOCYTES (AUTO) 0.9 10^3/uL (0.1-1.4); ABSOLUTE NEUT (AUTO) 13.4 10^3/uL (1.7-8.2); BASOPHILS % (AUTO) 0.7 % (0-2); HEMATOCRIT 36.9 % (37.9-51.0); HEMOGLOBIN 11.9 g/dL (13.5-17.0); LYMPHOCYTES % (AUTO) 5.1 % (13-45); MEAN CORPUSCULAR HEMOGLOBIN 26.5 pg (27.0-33.4); MEAN CORPUSCULAR HGB CONC 32.3 g/dL (32.0-36.0); MEAN CORPUSCULAR VOLUME 82 fl (80-97); MONOCYTES % (AUTO) 5.8 % (3-13); PLATELET COUNT 238 10^3/uL (150-450); RED CELL DISTRIBUTION WIDTH 14.5 % (11.5-14.0); SEGMENTED NEUTROPHILS % (AUTO) 88.4 % (42-78); TOTAL CELLS COUNTED % (AUTO) 100 %; WHITE BLOOD COUNT 15.1 10^3/uL (4.0-10.5)
[2020-05-25 08:40] LABS: ALBUMIN 4.4 g/dL (3.5-5.0); ALKALINE PHOSPHATASE 48 U/L (38-126); ANION GAP 8 (5-19); ASPARTATE AMINO TRANSFERASE 33 U/L (17-59); BILIRUBIN,DIRECT 0.1 mg/dL (0.0-0.4); BILIRUBIN,TOTAL 0.7 mg/dL (0.2-1.3); BLOOD UREA NITROGEN 17 mg/dL (7-20); CALCIUM 9.8 mg/dL (8.4-10.2); CARBON DIOXIDE 28 mmol/L (22-30); CHLORIDE 106 mmol/L (98-107); GLUCOSE 105 mg/dL (75-110); TOTAL PROTEIN 7.3 g/dL (6.3-8.2)
[2020-05-25] MEDS ORDERED: ONDANSETRON HCL INJ/PF 4 MG/2 ML SDV IV ONE ×2 (09:04→15:08)
[2020-05-25] MEDS ORDERED: KETOROLAC TROMETHAMINE INJ/PF 30 MG/1 ML SDV IV ONE (09:04)
--- NOTE | 2020-05-25 12:22 | RADIOLOGY REPORT (SQ) ---
EXAM DESCRIPTION: CT ABD/PELVIS WITH IV ORAL IMAGES COMPLETED DATE/TIME: 05/25/2020 12:09 pm REASON FOR STUDY: abdominal pain elevated wbc COMPARISON: 12/31/2015 TECHNIQUE: CT scan of the abdomen and pelvis performed using helical scanning technique with dynamic intravenous contrast injection. No oral contrast. Images reviewed with lung, soft tissue, and bone windows. Reconstructed coronal and sagittal MPR images reviewed. Delayed images for evaluation of the urinary system also acquired. All images stored on PACS. All CT scanners at this facility use dose modulation, iterative reconstruction, and/or weight based d osing when appropriate to reduce radiation dose to as low as reasonably achievable (ALARA). [facility]: Dose Right [facility]: CareDose [facility]: Dose Right [facility]: Teradose 4D [facility]: [employer] CONTRAST TYPE AND DOSE: contrast/concentration: Isovue 350.00 mmol/ml; Total Contrast Delivered: 91. 0 ml; Total Saline Delivered: 69.9 ml RENAL FUNCTION: BUN 17, creatinine 0.98 RADIATION DOSE: CT Rad equipment meets quality standard of care and radiation dose reduction techniq ues were employed. CTDIvol: NaN - NaN mGy. DLP: 0 mGy-cm.. LIMITATIONS: The study is limited by lack of intra and retroperitoneal fat. FINDINGS: LOWER CHEST: No significant findings. No nodules or infiltrates. LIVER: Normal size. No masses. No dilated ducts. SPLEEN: Normal size. No focal lesions. PANCREAS: No masses. No significant calcifications. No adjacent inflammation or peripancreatic fluid collections. Pancreatic duct not dilated. GALLBLADDER: No identified stones by CT criteria. No inflammatory changes to suggest cholecystitis. ADRENAL GLANDS: No significant masses or asymmetry. RIGHT KIDNEY AND URETER: No solid masses. No significant calcifications. No hydronephrosis or hyd roureter. LEFT KIDNEY AND URETER: No solid masses. No significant calcifications. No hydronephrosis or hydr oureter. AORTA AND VESSELS: No aneurysm. No dissection. Renal arteries, SMA, celiac without stenosis. RETROPERITONEUM: No retroperitoneal adenopathy, hemorrhage or masses. BOWEL AND PERITONEAL CAVITY: No masses or inflammatory changes. No free fluid or peritoneal masses. APPENDIX: Normal. PELVIS: No mass. No free fluid. Normal bladder. ABDOMINAL WALL: No masses. No hernias. BONES: No significant or acute findings. OTHER: No other significant finding. IMPRESSION: No acute findings in the abdomen or pelvis. Study is limited by lack of intra and retro peritoneal fat. Early inflammatory changes could be easily obscured. TECHNICAL DOCUMENTATION: JOB ID: [id number] Quality ID # [id number]: Final reports with documentation of one or more dose reduction techniques (e.g., Au tomated exposure control, adjustment of the mA and/or kV according to patient size, use of iterative reconstruction technique) 2010 [employer]- All Rights Reserved Reading location - IP/workstation name: [email or web address]
--- NOTE | 2020-05-25 14:13 | ER Document Report ---
ED GI/ - General Chief Complaint: Abdominal Pain Stated Complaint: ABDOMINAL PAIN Time Seen by Provider: 05/25/20 08:33 Primary Care Provider: [facility] [Provider Group] - Follow up as needed [facility] [Provider Group] - Follow up as needed [facility] [Provider Group] - Follow up as needed MAEVE GRANADOS MD [ACTIVE STAFF] - Follow up as needed YOU MONTAGUE MD [ACTIVE STAFF] - Follow up as needed Mode of Arrival: Wheelchair Information source: Patient, Relative Notes: 35-year-old male presented to ED for complaint of abdominal pain started this morning. He states he has had nausea but no diarrhea. He states he has vomited one time. He states he has had this many times in the past it comes and nobody ever finds out what is wrong with him. He is alert oriented respirations regular nonlabored speaking in full sentences. He is crying due to the pain in his abdomen. His abdomen is rigid. He has no point tenderness the whole abdomen is tender to palpation. He does have active bowel sounds. Constitutional: Negative for fever. HENT: Negative for sore throat. Eyes: Negative for visual changes. Cardiovascular: Negative for chest pain. Respiratory: Negative for shortness of breath. Gastrointestinal: Severe abdominal pain generalized with nausea no vomiting no diarrhea Genitourinary: Negative for dysuria. Musculoskeletal: Negative for back pain. Skin: Negative for rash. Neurological: Negative for headaches, weakness or numbness. 10 point ROS negative except as marked above and in HPI. VITAL SIGNS: Within normal limits. GENERAL: No acute distress, non-toxic appearance. HEAD: Normal with no signs of head trauma. EYES: PERRLA, EOMI, conjunctiva normal, no discharge. EARS: Hearing grossly intact. NOSE: Normal. THROAT: Oropharynx is normal. NECK: Normal range of motion, no tenderness, supple, no lymphadenopathy, No adenopathy, no JVD. CHEST: Clear breath sounds bilaterally. No wheezes, rales, or rhonchi. CARDIAC: Regular rate and rhythm. S1 and S2, without murmurs, gallops, or rubs. VASCULAR: No Edema. Peripheral pulses normal and equal in all extremities. ABDOMEN: Abdomen rigid, tender to palpation generalized. GASTROINTESTINAL: Bowel sounds normal GENITOURINARY: Normal, No tenderness LYMPATHTIC: No lymphadenopathy noted. MUSCULOSKELETAL: Good range of motion of all major joints. Extremities without clubbing, cyanosis or edema. NEUROLOGICAL: Alert and oriented x 3. No focal sensory or strength deficits. Speech normal. Follows commands appropriately. PSYCHIATRIC: Patient tearful stating that he cannot lay on his back due to the pain. SKIN: Normal appearance with no rashes or lesions. TRAVEL OUTSIDE OF THE [place] IN LAST 30 DAYS: No - HPI Patient complains to provider of: Abdominal pain, Vomiting Onset: This morning Timing/Duration: Intermittent Quality of pain: Sharp, Throbbing Severity at maximum: Severe Severity in ED: Severe Pain Level: 5 Location: LUQ, LLQ, RUQ, RLQ Associated symptoms: Nausea, Vomiting Exacerbated by: Supine, Walking, Food Relieved by: Denies Similar symptoms previously: Yes Recently seen / treated by doctor: No - Related Data Allergies/Adverse Reactions: latex [Latex] Allergy (Verified 05/25/20 10:59) morphine Allergy (Verified 05/25/20 10:59) oxycodone HCl [From Percocet] Allergy (Verified 05/25/20 10:59) Past Medical History - General Information source: Patient - Social History Smoking Status: Current Every Day Smoker Cigarette use (# per day): Yes Smoking Education Provided: Yes Frequency of alcohol use: Social Drug Abuse: None Lives with: Spouse/Significant other Family History: Reviewed & Not Pertinent Patient has suicidal ideation: No Patient has homicidal ideation: No - Past Medical History Cardiac Medical History: Reports: None Pulmonary Medical History: Reports: None EENT Medical History: Reports: None Neurological Medical History: Reports: None Endocrine Medical History: Reports: None Renal/ Medical History: Reports: None Malignancy Medical History: Reports None GI Medical History: Reports: Other - Chronic abdominal pain Musculoskeletal Medical History: Reports None Skin Medical History: Reports None Psychiatric Medical History: Reports: None Traumatic Medical History: Reports: None Infectious Medical History: Reports: None Surgical Hx: Negative Past Surgical History: Reports: None - Immunizations Immunizations up to date: Yes Hx Diphtheria, Pertussis, Tetanus Vaccination: Yes - 2014 Physical Exam - Vital signs Vitals: Pulse Resp BP Pulse Ox 53 L 20 150/113 H 100 05/25/20 07:49 05/25/20 07:49 05/25/20 07:49 05/25/20 07:49 Course - Re-evaluation Re-evalutation: 05/25/20 16:[address] Hand earlier when patient was crying again in severe pain. He recommended Bentyl and fentanyl with Zofran. These were ordered. He is now sleeping. His temperature did go up to 101. Dr. Hand recommended calling Dr. Han consult due to the elevated white count due to severe abdominal pain and now a fever. Dr. Hand did evaluate the CAT scan and lab results earlier. Dr. Han was consulted and he will be down to see the patient. 05/25/20 16:59 Dr. Han came and stated the patient did not have a surgical abdomen that he might be constipated or a virus but it was not surgical. I did request that he write a consult out. I then consulted with Dr. Hand. He stated to send the patient home on Bentyl and have him follow-up with gastroenterology. He stated there was no need for antibiotics at this time we will discharge the patient home. - Vital Signs Vital signs: Temp Pulse Resp BP Pulse Ox 99.2 F 53 L 17 123/59 L 100 05/25/20 17:02 05/25/20 07:49 05/25/20 17:02 05/25/20 17:02 05/25/20 17:02 - Laboratory Results Result Diagrams: 05/25/20 08:11 05/25/20 08:11 Laboratory Results Interpreted: 05/25/20 05/25/20 08:11 13:41 WBC 15.1 H Hgb 11.9 L Hct 36.9 L MCH 26.5 L RDW 14.5 H Lymph % (Auto) 5.1 L Absolute Neuts (auto) 13.4 H Seg Neutrophils % 88.4 H Urine Protein 30 H Urine Ketones TRACE H Urine Blood SMALL H Urine Urobilinogen 2.0 H Critical Laboratory Results Reviewed: No Critical Results - Radiology Results Critical Radiology Results Reviewed: No Critical Results Discharge - Discharge Clinical Impression: Chronic abdominal pain, Fever of unknown origin Condition: Stable Disposition: HOME, SELF-CARE Additional Instructions: ABDOMINAL PAIN: There are many causes of abdominal pain. Pain can mean a serious problem requiring surgery (such as appendicitis). It can also be an innocent problem that goes away on its own (such as a viral infection). Often, time must pass to determine the cause of pain. The physician does not feel that hospitalization is necessary, at present. Things may change within the next 24 hours. Call the doctor or come back for re- examination if any problems occur, such as: (1) Pain that becomes more severe, steady, or becomes concentrated in one specific area. Also, pain that is more severe with movement or coughing. (2) Vomiting that persists or becomes more frequent. (3) Blood in the vomitus, urine, or bowel movements. Blood in the stool may have a tarry or black appearance. (4) Shaking chills or fever greater than 100 degrees F. (5) The abdomen becomes more distended or swollen. (6) Bowel movements cease. (7) Failure to improve as expected. NORMAL EXAM AND WORKUP: At this time, your examination and workup show no significant abnormality. No significant abnormal physical findings are noted. All laboratory, EKG, and imaging (x-ray, CT scans, ultrasound) studies that were ordered show no significant abnormality. Although your examination and all studies that were ordered showed no significant abnormal finding, there are no examinations and no studies that are 100% accurate. There is always the possibility that some abnormality could exist and not be detected with physical examination or within the limits and capabilities of laboratory and other studies. You should return or follow up as you were instructed on your visit today for further evaluation if your symptoms do not resolve. TORADOL INJECTION: You have been given an injection of ketorolac tromethamine (Toradol). This is an excellent, safe drug for pain control. It also has potent antiinflammatory action. You should have significant pain relief within about one hour. Toradol is not addicting and is non-sedating. It does not interfere with driving or work. Call or return if you develop itching, hives, shortness of breath, or rash. PAIN MEDICATION INJECTION: You have received an injection of a pain medication. You should experience significant pain relief within 45 minutes. This drug is a narcotic -- it will impair your judgement, slow your reaction time and make you sleepy (as well as r elieve your pain). Narcotics also can cause nausea. You should not drive, work with machinery, or perform any task requiring mental alertness until all effects of the medication are gone -- six to eight hours. Do not take any alcohol, or sedatives, and do not take any other medication without checking with your physician. ANTINAUSEA MEDICATION: You have been given a medication to suppress nausea and vomiting. This type of medication can be given as a shot, pill, or suppository. It will usually last for many hours. Pills and shots usually last six to eight hours, suppositories last about 12 hours. For the typical illness, only one or two doses of the medication may be necessary. Mild lightheadedness may occur. This type of medicine can cause drowsiness. Do not drive or operate dangerous machinery while under its influence. Do not mix with alcohol. See your doctor at once if you have muscle spasms or tightness, or uncontrollable motions (particularly of the neck, mouth, or jaw). Persistent vomiting or severe lightheadedness should also be evaluated by the physician. ANTISPASMODICS: You have been given a prescription for an antispasmodic medicine. This type of drug is used to decrease cramping and pain in the intestines. It is also used to decrease secretion of internal fluids (such as stomach acid in ulcer disease or pancreatic juice in pancreas disease). This medicine may cause drowsiness, especially with the first dose. Do not operate machinery or drive until all side effects have resolved. Do not combine with alcohol. Other common side effects include dry mouth and eyes. In older persons, antispasmodics can occasionally cause urinary retention, constipation, or trouble focusing the eyes. Glaucoma may be worsened by this medicine. Intravenous (IV) Fluids As part of your care today, you received intravenous (IV) fluids. IV fluids are administered to patients who are dehydrated or to those who have certain chemical (electrolyte) abnormalities that need correcting. FOLLOW-UP CARE: If you have been referred to a physician for follow-up care, call the physicians office for an appointment as you were instructed or within the next two days. If you experience worsening or a significant change in your symptoms, notify the physician immediately or return to the Emergency Department at any time for re-evaluation. Prescriptions: Ondansetron [Zofran Odt 4 mg Tablet] 4 mg PO Q6HP PRN #14 tab.rapdis PRN Reason: Dicyclomine HCl [Bentyl 10 mg Capsule] 1 cap PO TID #30 cap Forms: Elevated Blood Pressure Referrals: YOU MONTAGUE MD [ACTIVE STAFF] - Follow up as needed MAEVE GRANADOS MD [ACTIVE STAFF] - Follow up as needed [facility] [Provider Group] - Follow up as needed [facility] [Provider Group] - Follow up as needed [facility] [Provider Group] - Follow up as needed
[2020-05-25 14:25] LABS: APPEARANCE,URINE CLEAR; BILIRUBIN,URINE NEGATIVE (NEGATIVE); COLOR,URINE YELLOW; GLUCOSE, URINE NEGATIVE (NEGATIVE); KETONES,URINE TRACE mg/dL (NEGATIVE); LEUKOCYTE ESTERASE,URINE NEGATIVE (NEGATIVE); NITRITE,URINE NEGATIVE (NEGATIVE); PROTEIN,URINE 30 mg/dL (NEGATIVE)
[2020-05-25 14:26] LABS: URINE SPECIFIC GRAVITY > 1.060
[2020-05-25] MEDS: NORMAL SALINE 1000 ML 1,000 ML IV PRN ×2 (14:45→15:29)
[2020-05-25] MEDS ORDERED: DICYCLOMINE HCL INJ 20 MG/2 ML AMPULE IM ONE (15:00)
[2020-05-25] MEDS ORDERED: FENTANYL CITRATE INJ/PF 100 MCG/2 ML AMPUL IV ONE (15:05)
--- NOTE | 2020-05-25 16:42 | PDOC CONSULTATION ---
Consultation Consult Date: 05/25/20 Provider Consulted: SURGICAL SURGICALIST MD Consult reason:: chronic abdominal pain. fever. constipation. History of Present Illness Patient complains of: left lower quadrant pain History of Present Illness: DONATO WILKES is a 35 year old male with a long history of chronic abdominal pain. The patient has crampy pain that wanders around his abdomen. Today, it is situated in his left lower quadrant. He reports waking up this morning with severe left lower quadrant abdominal pain. He had one episode of vomiting, that he reports was dinner from last night. The patient reports chronic co nstipation. His bowel movements are always hard and difficult to pass. He denies taking NSAIDs, or other oral medications. He reports that he has had multiple episodes similar to this in the past, with no clear cut explanation. He denies dysuria, penile discharge, testicular pain or swelling. He also denies chest pain, shortness of breath, headache, dizziness, orthostasis. He has had multiple sick contacts including his children and his parents. He reports that his family members tested negative for COVID-19. Past Medical History Cardiac Medical History: Reports: None Pulmonary Medical History: Reports: None EENT Medical History: Reports: None Neurological Medical History: Reports: None Endocrine Medical History: Reports: None Denies: Diabetes Mellitus Type 1, Diabetes Mellitus Type 2 Renal/ Medical History: Reports: None Malignancy Medical History: Reports: None GI Medical History: Reports: Other - Chronic abdominal pain and constipation Musculoskeltal Medical History: Reports: None Skin Medical History: Reports: None Psychiatric Medical History: Reports: None Traumatic Medical History: Reports: None Infectious Medical History: Reports: None Past Surgical History Past Surgical History: Reports: None Social History Lives with: Spouse/Significant other Smoking Status: Current Every Day Smoker Family History Family History: Reviewed & Not Pertinent Parental Family History Reviewed: Yes Children Family History Reviewed: Yes Sibling(s) Family History Reviewed.: Yes Medication/Allergy Home Medications: Ondansetron [Zofran Odt 4 mg Tablet] 1 - 2 tab PO Q4H PRN #30 tab.rapdis 03/11/17 Promethazine HCl [Phenergan 25 mg Supp.rect] [address] Q6H #30 supp.rect 7 Amox Tr/Potassium Clavulanate [Augmentin 875-125 Tablet] 1 tab PO BID 7 Days #14 tablet 01/21/19 Allergies/Adverse Reactions: latex [Latex] Allergy (Verified 05/25/20 10:59) morphine Allergy (Verified 05/25/20 10:59) oxycodone HCl [From Percocet] Allergy (Verified 05/25/20 10:59) Review of Systems Constitutional: ABSENT: anorexia, chills, fatigue Eyes: ABSENT: visual disturbances Ears: ABSENT: hearing changes Nose, Mouth, and Throat: ABSENT: sore throat Cardiovascular: ABSENT: chest pain Respiratory: ABSENT: cough Gastrointestinal: PRESENT: abdominal pain, bloating, constipation, nausea, vomiting. ABSENT: melena Genitourinary: ABSENT: dysuria Integumentary: ABSENT: rash Neurological: ABSENT: confusion, convulsions, dizziness Psychiatric: ABSENT: anxiety, depression Endocrine: ABSENT: cold intolerance, heat intolerance Hematologic/Lymphatic: ABSENT: easy bleeding, easy bruising Physical Exam Vital Signs: Temp Pulse Resp BP Pulse Ox 101.0 F H 53 L 13 133/115 H 98 05/25/20 15:20 05/25/20 07:49 05/25/20 15:20 05/25/20 15:20 05/25/20 14:00 Intake & Output 05/24/20 05/25/20 05/26/20 06:59 06:59 06:59 Intake Total 733 Balance 733 Weight 80 kg General appearance: PRESENT: no acute distress, cooperative Head exam: PRESENT: atraumatic, normocephalic Eye exam: PRESENT: EOMI, PERRLA. ABSENT: scleral icterus Mouth exam: PRESENT: moist, neck supple Neck exam: ABSENT: meningismus, tenderness, thyromegaly Respiratory exam: PRESENT: unlabored. ABSENT: tachypnea Cardiovascular exam: ABSENT: tachycardia GI/Abdominal exam: PRESENT: soft. ABSENT: distended, rebound, rigid, tenderness Rectal exam: PRESENT: deferred Extremities exam: ABSENT: clubbing Musculoskeletal exam: ABSENT: deformity Neurological exam: PRESENT: alert, awake, oriented to person, oriented to place, oriented to time, oriented to situation Psychiatric exam: ABSENT: agitated, anxious, depressed Focused psych exam: ABSENT: delusional Skin exam: ABSENT: cyanosis, erythema, jaundice Results Laboratory Results: 05/25/20 08:11 05/25/20 08:11 05/25/20 05/25/20 05/25/20 08:11 08:11 13:41 WBC 15.1 H RBC 4.50 Hgb 11.9 L Hct 36.9 L MCV 82 MCH 26.5 L MCHC 32.3 RDW 14.5 H Plt Count 238 Seg Neutrophils % 88.4 H Sodium 141.5 Potassium 4.0 Chloride 106 Carbon Dioxide 28 Anion Gap 8 BUN 17 Creatinine 0.98 Est GFR ( Amer) > 60 Glucose 105 Calcium 9.8 Total Bilirubin 0.7 AST 33 Alkaline Phosphatase 48 Total Protein 7.3 Albumin 4.4 Lipase 40.1 Urine Color YELLOW Urine Appearance CLEAR Urine pH 6.0 Ur Specific [place] > 1.060 Urine Protein 30 H Urine Glucose (UA) NEGATIVE Urine Ketones TRACE H Urine Blood SMALL H Urine Nitrite NEGATIVE Ur Leukocyte Esterase NEGATIVE Urine WBC (Auto) 1 Urine RBC (Auto) 9 Impressions: Abdomen/Pelvis CT 05/25/20 09:03 IMPRESSION: No acute findings in the abdomen or pelvis. Study is limited by lack of intra and retroperitoneal fat. Early inflammatory changes could be easily obscured. Assessment & Plan - Diagnosis (1) Chronic abdominal pain Is this a current diagnosis for this admission?: Yes (2) Constipation Qualifiers: Constipation type: chronic idiopathic constipation Qualified Code(s): K59.04 - Chronic idiopathic constipation Is this a current diagnosis for this admission?: Yes (3) Fever of unknown origin Is this a current diagnosis for this admission?: Yes - Plan Summary Plan Summary: This is a 35-year-old male with chronic abdominal pain. He complains of worsening symptoms this morning. The patient reports that it "feels like it did before". Last time he was told that "nothing could be found that was wrong". Upon my interview today, the patient complains of pain, worse in the left lower quadrant. On examination, he has no observed abdominal tenderness. He has no sign of peritonitis, voluntary or involuntary guarding, rebound, or other obvious concerning finding. I have reviewed his CT scan. He has no evidence of intra-abdominal abscess, bowel wall thickening, or suggestion of appendicitis. He does have a large amount of stool in the colon, consistent with his history of chronic constipation. The patient has had multiple sick contacts including his children and parents. His fevers may be related to a viral illness. Flu, rotavirus, COVID-19 are not excluded. Outpatient workup for inflammatory bowel disease may prove beneficial. The patient does not require surgical intervention at this time. I have relayed this to the ER provider. Disposition per ER provider. Surgery will sign off.
[2020-05-25] MEDS ORDERED: ACETAMINOPHEN 325 MG TABLET PO ONE (16:59)
[2020-05-25 17:41] VITALS: BP 123/59
== END 2020-05-25 17:41 | disposition home or self-care (01) ==
LOC: ER 07:41
DX: K59.04 Chronic idiopathic constipation (principal); R10.84 Generalized abdominal pain; G89.29 Other chronic pain; R10.817 Generalized abdominal tenderness; R50.9 Fever, unspecified; D72.829 Elevated white blood cell count, unspecified; R11.2 Nausea with vomiting, unspecified; F17.210 Nicotine dependence, cigarettes, uncomplicated; Z91.040 Latex allergy status; Z88.6 Allergy status to analgesic agent; Z88.5 Allergy status to narcotic agent
CPT/HCPCS: 96376; 99285; 96372; 96361; 96374; 96375; 36415; 87086; 83690; 85025; 80053; 81001; 74177; J0500; J3010; J1885; J2405; J7030